=== PATIENT | female | born 1955 | race Caucasian/White ===

== ENCOUNTER 2019-09-02 07:32 | Emergency (ER) | payer OTHER ==
--- OUTSIDE RECORDS SUMMARY | 2019-09-02 07:34 | XMS REPORT ---
:1955 Author Organization eClinicalWorks Care Team Providers Name Role Phone Mayi Doe Provider Role Unavailable Allergies No Known Allergies Problems Problem Type Condition Code Onset Dates Condition Statu s Problem Allergic rhinitis, unspecified J30.9 Active seasonality, unspecified trigger Problem Muscle cramps R25.2 Active Problem Essential hypertension I10 Activ e Problem Hypertriglyceridemia E78.1 Active Problem Thrombocytosis D47.3 Active Problem Hypercalcemia E83.52 Active Problem Poison joel dermatitis L23.7 Active Problem Skin lesion L98.9 Active Problem Leukocytosis, unspecified type D72.829 Active Problem Elevated liver function tests R94.5 Active Problem Uncontrolled type 2 diabetes E11.65 Active mellitus without complication, without long-term current use of insulin Problem Bilateral low back pain without M54.5 Active sciatica, unspecified chronicity Problem Hypertension, unspecified type I10 Active Problem Insomnia, unspecified type G47.00 A ctive Problem Anxiety F41.9 Active Problem Dysarthria R47.1 Active Problem Hyperlipidemia, unspecified E78.5 Active hyperlipidemia type Problem Insomnia G47.00 Active Problem Left hip pain M25.552 Active Problem Gastroesophageal reflux disease, K21.9 Active esophagitis presence not specified Medications No Known Medications Results No Known Results Summary Purpose eClinicalWorks Submission
--- OUTSIDE RECORDS SUMMARY | 2019-09-02 07:34 | XMS REPORT ---
:1955 [facility] Care Team Providers Name Role Phone Brook Mayi Provider Role Unavailable Allergies, Adverse Reactions, Alerts Substance Reaction Event Type N.K.D.A. Info Not Available Non Drug Allergy Problems Problem Type Condition Code Onset Dates Condition Statu s Assessment Insomnia G47.00 Active Assessment Dysarthria R47.1 Active Assessment Muscle cramps R25.2 Active Assessment Thrombocytosis D47.3 Active Assessment Leukocytosis, unspecified type D72.829 Active Assessment Hypercalcemia E83.52 Active Assessment Elevated liver function tests R94.5 Active Assessment Gastroesophageal reflux disease, K21.9 Active esophagitis presence not specified Problem Insomnia G47.00 Active Assessment Hypertriglyceridemia E78.1 Active Problem Gastroesophageal reflux disease, K21.9 Active esophagitis presence not specified Assessment Hyperlipidemia, unspecified E78.5 Active hyperlipidemia type Problem Allergic rhinitis, unspecified J30.9 Active seasonality, unspecified trigger Problem Muscle cramps R25.2 Active Problem Essential hypertension I10 Activ e Problem Hypertriglyceridemia E78.1 Active Problem Thrombocytosis D47.3 Active Assessment Essential hypertension I10 Activ e Problem Hypercalcemia E83.52 Active Assessment Uncontrolled type 2 diabetes E11.65 Active mellitus without complication, without long-term current use of insulin Problem Poison joel dermatitis L23.7 Active Problem [...] Hyperlipidemia, unspecified E78.5 Active hyperlipidemia type Problem Left hip pain M25.552 Active Medications Medication Code Code Instructions Start End Status Dosage System Date Date Lisinopril [facility] 80028023434 20 MG Orally Active 1 ta blet Once a day Januvia [facility] 78903725313 50 MG Orally Active 1 table t Once a day for diabetes Mupirocin [facility] 45181345430 2 % Externally Active 1 Three times a applicatio n day to affected area Trazodone HCl [facility] 63557623030 50 MG Orally Active 1 tablet at Once a day bedtime as needed Cyclobenzaprine HCl [facility] 99759314565 10 MG Orally May Act antonia 1 tablet as Twice daily , needed for 2019 2019 muscle cramps/pain Ambien [facility] 94587931720 10 MG Orally Active 1 table t at Once a day bedtime as needed for sleep Fish Oil [facility] 61576425147 1200 MG Orally Active 1 ca psule Twice daily (otc) Metformin HCl [facility] 85890815976 1000 MG Orally Active 1 tablet Twice a day with meals Mobic [facility] 21508524337 7.5 MG Orally Active 1 tabl et Once a day Belsomra [facility] 47730930001 15 MG Orally Active 1 tabl et at Once a day bedtime as needed Hydrochlorothiazide [facility] 69960212180 25 MG Orally Act antonia 1 tablet in Once a day the morning amitriptyline ND 11907260785 25 mg po Active one t ab bedtime as needed Pravastatin Sodium [facility] 89475727365 40 MG Orally Acti ve 1 tablet in Once a day the evening Zestoretic [facility] 23698198219 20-12.5 MG Active 1 tabl et Orally Twice a day Omeprazole [facility] 03033277356 20 MG Orally Active 1 ca psule Once a day Alprazolam ND 05563965279 0.5 MG Orally Active 1 t ablet Twice a day Results No Known Results Summary Purpose eClinicalWorks Submission
--- OUTSIDE RECORDS SUMMARY | 2019-09-02 07:35 | XMS REPORT ---
:1955 Author Organization eClinicalWorks Care Team Providers Name Role Phone Canelo Patinoh Provider Role Unavailable Allergies, Adverse Reactions, Alerts Substance Reaction Event Type N.K.D.A. Info Not Available Non Drug Allergy Problems Problem Type Condition Code Onset Dates Condition Statu s Problem Allergic rhinitis, unspecified J30.9 Active seasonality, unspecified trigger Problem Muscle cramps R25.2 Active Problem Essential hypertension I10 Activ e Problem Hypertriglyceridemia E78.1 Active Problem Thrombocytosis D47.3 Active Assessment Fever, unspecified fever cause R50.9 Active Assessment Congestion of both ears H93.8X3 Acti ve Problem Hypercalcemia E83.52 Active Problem Poison joel [...] Anxiety F41.9 Active Problem Dysarthria R47.1 Active Assessment Sore throat J02.9 Active Problem Hyperlipidemia, unspecified E78.5 Active hyperlipidemia type Problem Insomnia G47.00 Active Assessment Encounter for observation for Z03.818 Active suspected exposure to other biological agents ruled out Problem Left hip pain M25.552 Active Problem Gastroesophageal reflux disease, K21.9 Active esophagitis presence not specified Medications Medication Code Code Instructions Start End Status Dosage System Date Date Pravastatin Sodium [facility] 62883814224 40 MG Orally Acti ve 1 tablet in Once a day the evening Zestoretic [facility] 60935379023 20-12.5 MG Active 1 tabl et Orally Twice a day Januvia [facility] 38023372178 50 MG Orally Active 1 table t Once a day for diabetes Metformin HCl ND 24838947101 1000 MG Orally Active 1 tablet Twice a day with meals Hydrochlorothiazide [facility] 12064781912 25 MG Orally Act antonia 1 tablet in Once a day the morning amitriptyline [facility] 81867827909 25 mg po Active one t ab bedtime as needed Fish Oil [facility] 84110948015 1200 MG Orally Active 1 ca psule Twice daily (otc) Ambien [facility] 95332721150 10 MG Orally Active 1 table t at Once a day bedtime as needed for sleep Lisinopril [facility] 19058138468 20 MG Orally Active 1 ta blet Once a day Alprazolam [facility] 46528623075 0.5 MG Orally Active 1 t ablet Twice a day Omeprazole [facility] 95084666213 20 MG Orally Active 1 ca psule Once a day Mupirocin [facility] 87106768739 2 % Externally Active 1 Three times a applicatio n day to affected area Mobic [facility] 79488836761 7.5 MG Orally Active 1 tabl et Once a day Belsomra [facility] 35615405374 15 MG Orally Active 1 tabl et at Once a day bedtime as needed Trazodone HCl [facility] 72233618553 50 MG Orally Active 1 tablet at Once a day bedtime as needed Results No Known Results Summary Purpose eClinicalWorks Submission
--- OUTSIDE RECORDS SUMMARY | 2019-09-02 07:35 | XMS REPORT ---
:1955 [facility] Care Team Providers Name Role Phone Whitley Vieira Provider Role Unavailable Allergies, Adverse Reactions, Alerts Substance Reaction Event Type N.K.D.A. Info Not Available Non Drug Allergy Problems Problem Type Condition Code Onset Dates Condition Statu s Problem Allergic rhinitis, unspecified J30.9 Active seasonality, unspecified trigger Problem Muscle cramps R25.2 Active Problem Essential hypertension I10 Activ e Problem Hypertriglyceridemia E78.1 Active Problem Thrombocytosis D47.3 Active Assessment Dysuria R30.0 Active Assessment Urinary tract infection, site not N39.0 Active specified Problem Hypercalcemia E83.52 Active Problem Poison joel [...] Start End Status Dosage System Date Date amitriptyline ND 02605583883 25 mg po Active one t ab bedtime as needed Belsomra ND 11321819185 15 MG Orally Active 1 tabl et at Once a day bedtime as needed Pravastatin Sodium ND 85365731253 40 MG Orally Acti ve 1 tablet in Once a day the evening Metformin HCl ND 45460889543 1000 MG Orally Active 1 tablet Twice a day with meals Cyclobenzaprine HCl ND 23037641121 10 MG Orally May Act antonia 1 tablet twice a day , prn 2019 2019 Mupirocin [facility] 23484675805 2 % Externally Active 1 Three times a applicatio n day to affected area Russ [facility] 03174671409 50 MG Orally Active 1 table t Once a day for diabetes Alprazolam ND 28036743223 0.5 MG Orally Active 1 t ablet Twice a day Fish Oil [facility] 42403597899 1200 MG Orally Active 1 ca psule Twice daily (otc) Trazodone HCl [facility] 90086606169 50 MG Orally Active 1 tablet at Once a day bedtime as needed Zestoretic [facility] 97338213321 20-12.5 MG Active 1 tabl et Orally Twice a day Ambien [facility] 17385562714 10 MG Orally Active 1 table t at Once a day bedtime as needed for sleep Omeprazole [facility] 18376368114 20 MG Orally Active 1 ca psule Once a day Hydrochlorothiazide [facility] 28267593850 25 MG Orally Act antonia 1 tablet in Once a day the morning Mobic [facility] 63503385133 7.5 MG Orally Active 1 tabl et Once a day Lisinopril [facility] 20784088337 20 MG Orally Active 1 ta blet Once a day Cipro [facility] 74349406825 500 MG Orally June 13June Active 1 tabl et twice a day 2019 Results Name Result Date Reference Range Unit Abnormali ty Flag Urine Culture, Routine ----Urine Culture, Final report [id number] Routine ----Result 1 Escherichia coli [id number] Summary Purpose eClinicalWorks Submission
--- OUTSIDE RECORDS SUMMARY | 2019-09-02 07:36 | XMS REPORT | Continuity of Care Document ---
:1955 Author Organization [facility] t Address [address] [place] [address] Care Team Providers Name Role Phone Unavailable Unavailable Unavailable Problems Condition Condition Condition Status Onset Resolution Last Treating Co mments Source Name Details Category Date Date Treatment Clinician Date Hyperlipid Hyperlipid Problem Active [facility]ie unspecifie Me moria d d l hyperlipid hyperlipid Ou tpati emia type emia type ent Clinics Left hip Left hip [facility] Anxiety Anxiety Problem [facility] Poison joel Poison joel Problem Active [facility] dermatitis dermatitis [facility] Uncontroll Uncontroll Problem Active [facility] ed type 2 ed type 2 [facility] - diabetes diabetes Mem[facility] a mellitus mellitus l without without Outpati complicati complicati en t on, on, Clinics without without long-term long-term current current use of use of insulin insulin Muscle Muscle Problem Active [facility] cramps [facility]amps [facility] Gastroesop Gastroesop Problem Active [facility] hageal hageal [facility] reflux reflux [facility] disease, disease, l esophagiti esophagiti Ou tpati s presence s presence en t not not Clinics specified specified Skin Skin Problem Active [facility] lesion [facility] Insomnia Insomnia Problem [facility] Hypertensi Hypertensi Problem Active [facility] on, on, [facility] unspecifie unspecifie Me moria d type d type l Outpati ent Clinics Allergic Allergic Problem [facility]initis, [facility]initis, [facility] - unspecifie unspecifie Me moria d d l seasonalit seasonalit Ou tpati y, y, ent unspecifie unspecifie Cl inics d trigger d trigger Dysarthria Dysarthria Problem Active [facility] Bilateral Bilateral Problem Active [facility] low back low back [facility] pain pain [facility] without without l sciatica, sciatica, Outp ati unspecifie unspecifie en t d d Clinics chronicity chronicity Hypertrigl Hypertrigl Problem Active [facility] yceridemia yceridemia [facility]ics Elevated Elevated Problem Active [facility] liver liver [facility] function function [facility] a tests tests l [facility] Hypercalce Hypercalce Problem Active [facility] radha radha [facility] Thrombocyt Thrombocyt Problem Active [facility] osis osis [facility] Leukocytos Leukocytos Problem Active [facility] is, is, [facility] unspecifie unspecifie Me moria d type d type l [facility] Allergies, Adverse Reactions, Alerts This patient has no known allergies or adverse reactions. Medications Ordered Filled Start Stop Current Ordering Indication Dosage Frequency Signature Comments Components Source Medication Medication Date Date Medication? Clinician (SIG) Name Name Lisinopril Lisinopril Yes Lalo [address] [facility] Januvia Januvia Yes Lalo [address] [facility] Mupirocin Mupirocin Yes Lalo [address] [facility] [facility] applicatio [facility] to [facility] affected l area [facility] Trazodone Trazodone Yes Lalo [address] HCl HCl [facility] at bedtime [facility] as needed [facility] Ambien Ambien Yes [facility] 1 tablet [facility] at bedtime [facility] as needed [facility] for sleep l [facility] Fish Oil Fish Oil Yes Lalo [address] [facility] (otc) [facility] Metformin Metformin Yes Lalo [address] [facility] HCl HCl [facility] with meals [facility] Mobic Mobic Yes Lalo [address] [facility] Belsomra Belsomra Yes Lalo [address] [facility] at bedtime [facility] as needed [facility] Hydrochloro Hydrochloro Yes Lalo [address] thiazide thiazide [facility] in the [facility] - morning [facility] amitriptyli amitriptyli Yes Lalo one tab [facility] ne ne [facility] ent Clinics Pravastatin Pravastatin Yes Lalo [address] Sodium Sodium [facility] in the [facility] - evening [facility] Zestoretic Zestoretic Yes Lalo [address] [facility] [facility] Omeprazole Omeprazole Yes Lalo [address] [facility] [facility] Alprazolam Alprazolam Yes Lalo [address] [facility] [facility] ent Clinics Procedures This patient has no known procedures. Encounters Start End Encounter Admission Attending Care Care Encounter Source Date/Time Date/Time Type Type Clinicians Facility Department ID 2019-08-30 2019-08-30 Outpatient Naeem Hartleyt [id number] [address] 08[facility]45[facility]00 08:45:00 [facility] Medicine Outpati ent Clinics 2019-08-29 2019-08-29 [facility] [id number] 08:41:00 08:41:00 [facility] Medicine Outpati ent Clinics 2019-06-18 2019-06-18 [facility] [id number] [facility] 08:57:00 08:57:00 [facility] Medicine Outpati ent Clinics 2019-06-14 2019-06-14 [facility] [id number] 15:00:00 15:00:00 [facility] Medicine Outpati ent Clinics 2019-06-12 2019-06-12 [facility] [id number] 16[facility]49:00 16:49:00 [facility] Medicine Outpati ent Clinics 2019-05-30 2019-05-30 [facility] [id number] 09:25:00 09:25:00 [facility] Medicine l Medicine Outpati ent Clinics 2019-05-25 2019-05-25 [facility] [id number] 14:31:00 14:31:00 [facility] Medicine Outpati ent Clinics 2019-05-24 2019-05-24 [facility] [id number] 16[facility]45:00 16:45:00 [facility] Medicine Outpati ent Clinics 2019-04-25 2019-04-25 [facility] [id number] [facility] 08[facility]37:00 08:37:00 [facility] Medicine Outpati ent Clinics 2018-11-17 2018-11-17 [facility] [id number] 10:13:00 10:13:00 [facility] Medicine Outpati ent Clinics 2018-11-13 2018-11-13 [facility] [id number] 10:00:00 10:00:00 [facility] Medicine Outpati ent Clinics 2018-10-28 2018-10-28 [facility] [id number] 05:08:00 05:08:00 [facility] Medicine Outpati ent Clinics 2018-10-23 2018-10-23 [facility] [id number] [facility] 08:40:00 08:40:00 [facility] Medicine Outpati ent Clinics Results This patient has no known results.
[2019-09-02] MEDS ORDERED: ONDANSETRON 4 MG/2 ML VIAL ONE (08:11)
[2019-09-02] MEDS ORDERED: NA CHLORIDE 0.9% 1,000 ML ONE (08:11)
[2019-09-02 08:48] LABS: Absolute Lymphocytes (CBC) 0.8 K/uL (0.7-4.9); Basophils % 0.2 % (0-1.3); Hematocrit 36.7 % (36.0-45.0); RBC Red Blood Cell Count 4.33 M/uL (3.86-4.86)
[2019-09-02 09:14] LABS: ALT/SGPT 44 U/L (12-78); AST/SGOT 36 U/L (15-37); Albumin 3.1 g/dL (3.4-5.0); Alkaline Phosphatase 105 U/L (45-117); BUN Blood Urea Nitrogen 10 mg/dL (7-18); Bicarbonate 25 mmol/L (21-32); Bilirubin Direct 0.1 mg/dL (0-0.2); Bilirubin Total 0.3 mg/dL (0.2-1.0); Glucose Level 202 mg/dL (74-106); Potassium 3.5 mmol/L (3.5-5.1); Protein, Total 6.9 g/dL (6.4-8.2); Sodium Level 137 mmol/L (136-145)
[2019-09-02] MEDS ORDERED: HYDROCODONE/CHLORPHEN 5 ML/OSYR ONE (10:26)
--- NOTE | 2019-09-02 10:40 | RAD REPORT ---
EXAM DESCRIPTION: Anu Single View09/02/2019 9:18 am CLINICAL HISTORY: Cough COMPARISON: none FINDINGS: Mild left pulmonary opacities. Right lung appears clear of acute infiltrate. The heart is normal size IMPRESSION: Mild left pulmonary opacities may indicate a mild pneumonia
--- NOTE | 2019-09-02 10:50 | ER ---
Nurse's Notes [facility] Name: Tonja Washington Age: 63 yrs Sex: Female : 1955 Arrival Date: 09/02/2019 Time: 07:34 Bed 5 Private MD: Mayi Doe Diagnosis: Pneumonia, unspecified organism Presentation: 09/01 07:43 Chief complaint: Patient states: cough, fever up to 100.0 F, "hard to breathe" that aa5 began 1 week ago. Pt also reports nausea/vomiting x 2 days ago and diarrhea today. 07:43 Coronavirus screen: Patient reports a cough. Patient reports shortness of breath or aa5 difficulty breathing. Patient denies travel on a cruise ship or to a country the [facility] currently lists as an affected area. Patient reports contact with known and/or suspected case of COVID-19. Patient instructed to continue to wear a mask when interacting with others. Patient moved to private room, placed in contact and droplet isolation with eye protection until further assessment. Fever up to 100.0 F. Ebola Screen: Patient negative for fever greater than or equal to 101.5 degrees Fahrenheit, and additional compatible Ebola Virus Disease symptoms. Initial Sepsis Screen: Does the patient meet any 2 criteria? RR > 20 per min. HR > 90 bpm. Yes Does the patient have a suspected source of infection? Yes:. Risk Assessment: Do you want to hurt yourself or someone else? Patient reports no desire to harm self or others. Onset of symptoms was August 2019. 07:43 Acuity: CARIDAD 3 aa5 07:43 Method Of Arrival: Ambulatory aa5 Triage Assessment: 07:45 General: Appears distressed, uncomfortable, ill, Behavior is cooperative, appropriate bp for age, anxious. Pain: Denies pain. EENT: No deficits noted. Neuro: No deficits noted. Cardiovascular: Rhythm is sinus rhythm. Respiratory: Reports shortness of breath cough that is. GI: Reports nausea, vomiting. : No signs and/or symptoms were reported regarding the genitourinary system. Derm: No deficits noted. Musculoskeletal: No signs and/or symptoms reported regarding the musculoskeletal system. Historical: - Allergies: 07:43 No Known Allergies; aa5 - Home Meds: 07:43 Metformin Oral [Active]; Januvia oral oral [Active]; lisinopril-hydrochlorothiazide aa5 oral oral [Active]; pravastatin oral oral [Active]; - PMHx: 07:43 Hypertension; Hyperlipidemia; Diabetes - NIDDM; aa5 - Immunization history:: Adult Immunizations up to date. - Social history:: Smoking status: Patient denies any tobacco usage or history of. Screenin:45 Abuse screen: Denies threats or abuse. Denies injuries from another. Nutritional bp screening: No deficits noted. Tuberculosis screening: No symptoms or risk factors identified. Fall Risk None identified. Assessment: 07:45 General: SEE TRIAGE NOTE. GI: Abdomen is non-distended. bp 09:00 Reassessment: IVF INFUSING, RESULTS PENDING. NO CHANGE IN S/S. bp 10:03 Reassessment: ALL CURRENT ORDERS COMPLETE. DISPO PENDING. bp 11:08 Reassessment: PT D/C HOME AMBULATORY, DX WITH PNEUMONIA OF UNKNOWN ORGANISM, bp PRESUMPTIVE COVID-19. Vital Signs: 07:43 BP 139 / 75; Pulse 92; Resp 22 S; Temp 98.3(O); Pulse Ox 94% on R/A; Weight 77.56 kg aa5 (R); Height 5 ft. 9 in. (175.26 cm) (R); Pain 7/10; 08:00 BP 129 / 64; Pulse 88; Resp 13; Pulse Ox 92% on R/A; bp 09:00 BP 120 / 60; Pulse 87; Resp 19; Temp 98.2; Pulse Ox 98% ; bp 10:03 BP 121 / 66; Pulse 83; Resp 16; Pulse Ox 96% ; bp 11:08 BP 101 / 56; Pulse 81; Resp 17; Temp 98.9; Pulse Ox 95% on R/A; bp 07:43 Body Mass Index 25.25 (77.56 kg, 175.26 cm) aa5 ED Course: 07:34 Patient arrived in ED. ag5 07:35 Mayi Doe MD is Private Physician. ag5 07:43 Reddy Quinonez, AYDEN is Primary Nurse. bp 07:43 Gurjit Mckinney NP is PHCP. pm1 07:43 Arm band placed on Patient placed in an exam room, on a stretcher. aa5 07:43 Patient has correct armband on for positive identification. Placed in gown. Bed in low aa5 position. Call light in reach. Side rails up X2. 07:43 surveillance system monitor on. Pulse ox on. NIBP on. aa5 07:44 Kalpesh Padilla MD is Attending Physician. pm1 07:57 Triage completed. aa5 08:15 Inserted saline lock: 20 gauge in right forearm, using aseptic technique. Blood bp collected. 09:18 Chest Single View XRAY In Process Unspecified. EDMS 11:10 No provider procedures requiring assistance completed. IV discontinued, intact, bp bleeding controlled, No redness/swelling at site. Pressure dressing applied. Administered Medications: 08:15 Drug: Zofran (Ondansetron) 4 mg Route: IVP; Site: right forearm; bp 09:06 Follow up: Response: Nausea is decreased bp 08:15 Drug: NS 0.9% 1000 ml Route: IV; Rate: 1000 ml; Site: right forearm; bp 11:10 Follow up: IV Status: Completed infusion; IV Intake: 1000ml bp 10:15 Drug: Tussionex Pennkinetic ER 5 ml Route: PO; bp 10:54 Follow up: Response: Pain is decreased bp 11:00 Drug: Rocephin 1 grams Route: IV; Rate: calculated rate; Site: right forearm; bp 11:11 Follow up: IV Status: Completed infusion; IV Intake: 50ml bp 11:00 Drug: Zithromax 500 mg Route: PO; bp 11:11 Follow up: Response: No adverse reaction bp Intake: 11:10 IV: 1000ml; Total: 1000ml. bp 11:11 IV: 50ml; Total: 1050ml. bp Outcome: 10:49 Discharge ordered by . pm1 11:10 Discharged to home ambulatory. bp 11:10 Condition: stable 11:10 Discharge instructions given to patient, Instructed on discharge instructions, follow up and referral plans. medication usage, Demonstrated understanding of instructions, follow-up care, medications, Prescriptions given X 3. 11:22 Patient left the ED. bp Addendum: 09/04/2019 19:40 Addendum: COVID-19 Result: Positive result giiven to ED physician to notify pt. i w Physician: Kalpesh Padilla MD Physician attempted to contact pt. Physician left voice mail for pt to call the ED back. 09/05/2019 11:49 Addendum: COVID-19 Result: Positive result giiven to ED physician to notify pt. Other: i w pt was admitted to hospital, notified of COVID positive result. Signatures: Dispatcher [employer] EDElly Sandoval, AYDEN RN iw Lexie Crisostomo RN RN aa5 Gurjit Mckinney, ENGRAVER WOOD ENGRAVER WOOD pm1 Reddy Quinonez RN RN bp Gaskin, Ajare ag5 Corrections: (The following items were deleted from the chart) 09/01 09:22 09:00 BP 120 / 60; Pulse 87bpm; Resp 19bpm; Pulse Ox 98%; bp bp
--- NOTE | 2019-09-02 10:50 | EDPHYS ---
Physician Documentation [facility] Name: Tonja Washington Age: 63 yrs Sex: Female : 1955 Arrival Date: 09/02/2019 Time: 07:34 Bed 5 Private MD: Mayi Doe ED Physician Kalpesh Padilla HPI: 09/01 07:48 This 63 yrs old Female presents to ER via Unassigned with complaints of pm1 Cough, Fever, Vomiting, Breathing Difficulty. 07:48 The patient or guardian reports cough, flu symptoms. Onset: The symptoms/episode pm1 began/occurred 7 day(s) ago. Severity of symptoms: in the emergency department the symptoms are actually worse. Modifying factors: The symptoms are alleviated by nothing, the symptoms are aggravated by nothing. Associated signs and symptoms: Pertinent positives: fever, nausea, vomiting, and diarrhea. The patient has not recently seen a physician. Positive exposure to son in law who tested positive for covid-19 two weeks ago. Historical: - Allergies: 07:43 No Known Allergies; aa5 - Home Meds: 07:43 Metformin Oral [Active]; Januvia oral oral [Active]; lisinopril-hydrochlorothiazide aa5 oral oral [Active]; pravastatin oral oral [Active]; - PMHx: 07:43 Hypertension; Hyperlipidemia; Diabetes - NIDDM; aa5 - Immunization history:: Adult Immunizations up to date. - Social history:: Smoking status: Patient denies any tobacco usage or history of. ROS: 07:43 Eyes: Negative for injury, pain, redness, and discharge, Cardiovascular: Negative for pm1 chest pain, palpitations, and edema. 07:43 Back: Negative for injury and pain, MS/Extremity: Negative for injury and deformity, Skin: Negative for injury, rash, and discoloration. 07:43 Neuro: Negative for headache, weakness, numbness, tingling, and seizure. 07:43 Constitutional: Positive for fever, Negative for poor PO intake. 07:43 Respiratory: Positive for cough, shortness of breath, wheezing, Negative for sputum production. 07:43 Abdomen/GI: Positive for vomiting, diarrhea, Negative for abdominal pain. 07:43 All other systems are negative. Exam: 07:43 Constitutional: This is a well developed, well nourished patient who is awake, alert, pm1 and in no acute distress. Head/Face: Normocephalic, atraumatic. 07:43 Back: No spinal tenderness. No costovertebral tenderness. Full range of motion. Skin: Warm, dry with normal turgor. Normal color with no rashes, no lesions, and no evidence of cellulitis. MS/ Extremity: Pulses equal, no cyanosis. Neurovascular intact. Full, normal range of motion. 07:43 Cardiovascular: Exam negative for acute changes, Rate: normal, Rhythm: regular, Pulses: no pulse deficits are appreciated. 07:43 Respiratory: Exam negative for acute changes, respiratory distress, shortness of breath, wheezing. 07:43 Abdomen/GI: Exam negative for acute changes, Inspection: abdomen appears normal, Palpation: abdomen is soft and non-tender, in all quadrants. 07:43 Neuro: Exam negative for acute changes, Orientation: is normal, Motor: is normal, moves all fours. Vital Signs: 07:43 BP 139 / 75; Pulse 92; Resp 22 S; Temp 98.3(O); Pulse Ox 94% on R/A; Weight 77.56 kg aa5 (R); Height 5 ft. 9 in. (175.26 cm) (R); Pain 7/10; 08:00 BP 129 / 64; Pulse 88; Resp 13; Pulse Ox 92% on R/A; bp 09:00 BP 120 / 60; Pulse 87; Resp 19; Temp 98.2; Pulse Ox 98% ; bp 10:03 BP 121 / 66; Pulse 83; Resp 16; Pulse Ox 96% ; bp 11:08 BP 101 / 56; Pulse 81; Resp 17; Temp 98.9; Pulse Ox 95% on R/A; bp 07:43 Body Mass Index 25.25 (77.56 kg, 175.26 cm) aa5 MDM: 07:44 Patient medically screened. pm1 10:48 Data reviewed: vital signs. Data interpreted: Pulse oximetry: on room air is 96 %. pm1 Interpretation: normal. Counseling: I had a detailed discussion with the patient and/or guardian regarding: the historical points, exam findings, and any diagnostic results supporting the discharge/admit diagnosis, lab results, radiology results, the need for outpatient follow up, to return to the emergency department if symptoms worsen or persist or if there are any questions or concerns that arise at home. 09/01 07:53 Order name: COVID-19 pm1 09/01 07:53 Order name: Flu; Complete Time: 10:44 pm1 09/01 07:53 Order name: Strep; Complete Time: 10:45 pm09/01 07:53 Order name: Basic Metabolic Panel; Complete Time: 09:18 pm09/01 07:53 Order name: CBC with Diff; Complete Time: 08:57 pm1 09/01 07:53 Order name: Hepatic Function; Complete Time: 09:18 pm09/01 07:53 Order name: Document PUI#; Complete Time: 08:21 pm09/01 07:53 Order name: Chest Single View XRAY; Complete Time: 10:44 pm09/01 10:46 Order name: Throat Culture EDMS 09/01 07:53 Order name: Droplet/Contact Precautions; Complete Time: 07:56 pm09/01 07:53 Order name: Labs collected and sent; Complete Time: 08:21 pm09/01 07:53 Order name: Notify Health Dept [phone]/ ; Complete Time: 08:21 pm09/01 07:53 Order name: O2 Per Protocol; Complete Time: 07:56 pm09/01 07:53 Order name: IV Saline Lock; Complete Time: 08:21 pm1 Administered Medications: 08:15 Drug: Zofran (Ondansetron) 4 mg Route: IVP; Site: right forearm; bp 09:06 Follow up: Response: Nausea is decreased bp 08:15 Drug: NS 0.9% 1000 ml Route: IV; Rate: 1000 ml; Site: right forearm; bp 11:10 Follow up: IV Status: Completed infusion; IV Intake: 1000ml bp 10:15 Drug: Tussionex Pennkinetic ER 5 ml Route: PO; bp 10:54 Follow up: Response: Pain is decreased bp 11:00 Drug: Rocephin 1 grams Route: IV; Rate: calculated rate; Site: right forearm; bp 11:11 Follow up: IV Status: Completed infusion; IV Intake: 50ml bp 11:00 Drug: Zithromax 500 mg Route: PO; bp 11:11 Follow up: Response: No adverse reaction bp Disposition: 09/02 05:36 Co-signature as Attending Physician, Kalpesh Padilla MD I agree with the assessment and philippe plan of care. Disposition: 09/02/19 10:49 Discharged to Home. Impression: Pneumonia, unspecified organism. - Condition is Stable. - Discharge Instructions: Community-Acquired Pneumonia, Adult, COVID-19. - Prescriptions for Zithromax Z- Ray 250 mg Oral Tablet - take 1 tablet by ORAL route as directed for 5 days Day 1 - take two (2) tablets one time. Day 2, 3, 4 , 5 take one (1) tablet once daily.; 6 tablet. Guaifenesin AC 10- 100 mg/5 mL Oral Liquid - take 10 milliliter by ORAL route every 4 hours As needed; 240 milliliter. Albuterol Sulfate 90 mcg/actuation - inhale 1-2 puff by INHALATION route every 4-6 hours; 1 Inhaler. Zofran ODT 4 mg Oral tablet,disintegrating - place 1 tablet by TRANSLINGUAL route every 8 hours As needed; 12 tablet. - Medication Reconciliation Form, Thank You Letter, Antibiotic Education, Prescription Opioid Use form. - Follow up: Emergency Department; When: As needed; Reason: Worsening of condition. Follow up: Private Physician; When: 2 - 3 days; Reason: Recheck today's complaints, Continuance of care, Re-evaluation by your physician. - Problem is new. - Symptoms have improved. Signatures: Dispatcher [employer] [facility] Kalpesh Padilla MD MD cha Calderon, Audri, RN RN aa5 Gurjit Mckinney, [employer]IPPING CUTTER pm1 Reddy Quinonez RN RN bp Corrections: (The following items were deleted from the chart) 09/01 11:22 10:49 09/02/2019 10:49 Discharged to Home. Impression: Pneumonia, unspecified organism. bp Condition is Stable. Forms are Medication Reconciliation Form, Thank You Letter, Antibiotic Education, Prescription Opioid Use. Follow up: Emergency Department; When: As needed; Reason: Worsening of condition. Follow up: Private Physician; When: 2 - 3 days; Reason: Recheck today's complaints, Continuance of care, Re-evaluation by your physician. Problem is new. Symptoms have improved. pm1
[2019-09-02] MEDS ORDERED: NA CHLORIDE 0.9% 100 ML IV ONE (11:10)
[2019-09-02] MEDS ORDERED: CEFTRIAXONE/SWI 1gm 1 GM/10 ML SYR ONE (11:10)
[2019-09-02] MEDS ORDERED: AZITHROMYCIN 250 MG TAB ONE (11:10)
[2019-09-02 11:35] VITALS: BP 101/56; TEMP 98.9; O2SAT 95
== END 2019-09-02 11:22 | disposition home or self-care (01) ==
LOC: ER 07:32
DX: U07.1 COVID-19 (principal); J18.9 Pneumonia, unspecified organism; I10 Essential (primary) hypertension; E11.9 Type 2 diabetes mellitus without complications; E78.5 Hyperlipidemia, unspecified
CPT/HCPCS: 96361; 87070; 85025; 80048; 36415; 80076; 87081; 87804 ×2; 71045; 96375; 96374; 99284; U0001; J0696; J7030; J2405

== ENCOUNTER 2019-09-05 06:23 | Inpatient (IN) | payer OTHER ==
--- OUTSIDE RECORDS SUMMARY | 2019-09-05 06:25 | XMS REPORT ---
:1955 [facility] Team Providers Name Role Phone Brook [...] End Status Dosage System Date Date Lisinopril [facility] 06486690965 20 MG Orally Active 1 ta blet Once a day Januvia [facility] 76268343270 50 MG Orally Active 1 table t Once a day for diabetes Mupirocin [facility] 18105528500 2 % Externally Active 1 Three times a applicatio n day to affected area Trazodone HCl [facility] 96638126110 50 MG Orally Active 1 tablet at Once a day bedtime as needed Cyclobenzaprine HCl [facility] 95650756877 10 MG Orally May Act antonia 1 tablet as Twice daily , needed for 2019 2019 muscle cramps/pain Ambien [facility] 90415757695 10 MG Orally Active 1 table t at Once a day bedtime as needed for sleep Fish Oil [facility] 25132129630 1200 MG Orally Active 1 ca psule Twice daily (otc) Metformin HCl [facility] 23980149812 1000 MG Orally Active 1 tablet Twice a day with meals Mobic [facility] 81140445558 7.5 MG Orally Active 1 tabl et Once a day Belsomra [facility] 74078790551 15 MG Orally Active 1 tabl et at Once a day bedtime as needed Hydrochlorothiazide [facility] 95691578405 25 MG Orally Act antonia 1 tablet in Once a day the morning amitriptyline ND 23580073664 25 mg po Active one t ab bedtime as needed Pravastatin Sodium [facility] 24516142722 40 MG Orally Acti ve 1 tablet in Once a day the evening Zestoretic [facility] 47919099065 20-12.5 MG Active 1 tabl et Orally Twice a day Omeprazole [facility] 44803253175 20 MG Orally Active 1 ca psule Once a day Alprazolam ND 40334827448 0.5 MG Orally Active 1 t ablet Twice a day Results No Known Results Summary Purpose eClinicalWorks Submission
--- OUTSIDE RECORDS SUMMARY | 2019-09-05 06:26 | XMS REPORT ---
:1955 [facility] Care Team Providers Name Role Phone Whitley [...] Status Dosage System Date Date amitriptyline ND 25695128695 25 mg po Active one t ab bedtime as needed Belsomra ND 43609779569 15 MG Orally Active 1 tabl et at Once a day bedtime as needed Pravastatin Sodium ND 77709745143 40 MG Orally Acti ve 1 tablet in Once a day the evening Metformin HCl ND 72892757152 1000 MG Orally Active 1 tablet Twice a day with meals Cyclobenzaprine HCl ND 76535771528 10 MG Orally May Act antonia 1 tablet twice a day , prn [address] [facility] 11515949212 2 % Externally Active 1 Three times a applicatio n day to affected area Russ [facility] 37004531851 50 MG Orally Active 1 table t Once a day for diabetes Alprazolam ND 72725231613 0.5 MG Orally Active 1 t ablet Twice a day Fish Oil [facility] 62759731177 1200 MG Orally Active 1 ca psule Twice daily (otc) Trazodone HCl [facility] 92776574001 50 MG Orally Active 1 tablet at Once a day bedtime as needed Zestoretic [facility] 55512617722 20-12.5 MG Active 1 tabl et Orally Twice a day Ambien [facility] 85136362115 10 MG Orally Active 1 table t at Once a day bedtime as needed for sleep Omeprazole [facility] 15679790747 20 MG Orally Active 1 ca psule Once a day Hydrochlorothiazide [facility] 78091307165 25 MG Orally Act antonia 1 tablet in Once a day the morning Mobic [facility] 02164466681 7.5 MG Orally Active 1 tabl et Once a day Lisinopril [facility] 98094738886 20 MG Orally Active 1 ta blet Once a day Cipro [facility] 09445067627 500 MG Orally June 13June Active 1 tabl et twice a day 2019 Results Name Result Date Reference Range Unit Abnormali ty Flag Urine Culture, Routine ----Urine Culture, Final report [id number] Routine ----Result 1 Escherichia coli [id number] Summary Purpose eClinicalWorks Submission
--- OUTSIDE RECORDS SUMMARY | 2019-09-05 06:26 | XMS REPORT ---
[...] Status Dosage System Date Date Pravastatin Sodium [facility] 79256901060 40 MG Orally Acti ve 1 tablet in Once a day the evening Zestoretic [facility] 00580914237 20-12.5 MG Active 1 tabl et Orally Twice a day Januvia [facility] 39031337477 50 MG Orally Active 1 table t Once a day for diabetes Metformin HCl ND 55524689761 1000 MG Orally Active 1 tablet Twice a day with meals Hydrochlorothiazide [facility] 29715254428 25 MG Orally Act antonia 1 tablet in Once a day the morning amitriptyline [facility] 95728874640 25 mg po Active one t ab bedtime as needed Fish Oil [facility] 28076563757 1200 MG Orally Active 1 ca psule Twice daily (otc) Ambien [facility] 35343868218 10 MG Orally Active 1 table t at Once a day bedtime as needed for sleep Lisinopril [facility] 09610432112 20 MG Orally Active 1 ta blet Once a day Alprazolam [facility] 59007898975 0.5 MG Orally Active 1 t ablet Twice a day Omeprazole [facility] 06842944704 20 MG Orally Active 1 ca psule Once a day Mupirocin [facility] 98063108455 2 % Externally Active 1 Three times a applicatio n day to affected area Mobic [facility] 83059807545 7.5 MG Orally Active 1 tabl et Once a day Belsomra [facility] 84510065829 15 MG Orally Active 1 tabl et at Once a day bedtime as needed Trazodone HCl [facility] 95593030227 50 MG Orally Active 1 tablet at Once a day bedtime as needed Results No Known Results Summary Purpose eClinicalWorks Submission
--- OUTSIDE RECORDS SUMMARY | 2019-09-05 06:27 | XMS REPORT | Continuity of Care Document ---
:[address] [facility] [place], [place] t Address [address] [place] [address] Care Team Providers Name Role Phone Unavailable [...] [facility] Bilateral Bilateral Problem Active [facility] low back low back [facility] - pain pain [facility] without without l sciatica, sciatica, Outp ati unspecifie unspecifie en t d d Clinics chronicity chronicity Hypertrigl Hypertrigl Problem Active C [facility] yceridemia yceridemia Mimi k[facility] - [facility] Elevated Elevated Problem Active [facility] liver liver [facility] function function [facility] a tests tests l [facility] Hypercalce Hypercalce Problem Active [facility] radha radha [facility] Thrombocyt Thrombocyt Problem Active [facility] osis osis [facility] Leukocytos Leukocytos Problem Active [facility] is, is, [facility] - unspecifie unspecifie Me moria d type d type l [facility] Allergies, Adverse Reactions, Alerts This patient has no known allergies or adverse reactions. Medications Ordered Filled Start Stop Current Ordering Indication Dosage Frequency Signature Comments Components Source Medication Medication Date Date Medication? Clinician (SIG) Name Name Lisinopril Lisinopril Yes Lalo [address] [facility] Januvia Januvia Yes Lalo [address] [facility] Mupirocin Mupirocin Yes Lalo [address] [facility] applicatio [facility] - n to [facility]oria affected l area [facility] Trazodone Trazodone Yes Lalo [address] [facility] HCl HCl [place] at bedtime [facility] - as needed [facility] Ambien Ambien Yes Lalo 1 tablet [facility] at bedtime [facility] as needed [facility] for sleep l [facility] Fish Oil Fish Oil Yes Lalo [address] [facility] (otc) [facility] Metformin Metformin Yes Lalo [address] [facility] HCl HCl [place] with meals [facility] Mobic Mobic Yes Lalo [address] [facility] Belsomra Belsomra Yes Lalo [address] [facility] at bedtime [facility] as needed [facility] Hydrochloro Hydrochloro Yes Allo [address] [facility] thiazide thiazide [place] in the [facility] - morning [facility] amitriptyli amitriptyli Yes Lalo one tab [facility] ne ne [facility] Pravastatin Pravastatin Yes Lalo [address] [facility] [address] Sodium Sodium [place] in the [facility] - evening [facility] Zestoretic Zestoretic Yes Lalo [address] [facility] [address] [facility] Omeprazole Omeprazole Yes Lalo [address] [facility] Alprazolam Alprazolam Yes Lalo [address] [facility] Procedures This patient has no known procedures. Encounters Start End Encounter Admission Attending Care Care Encounter Source Date/Time Date/Time Type Type Clinicians Facility Department ID 2019-09-04 2019-09-04 Outpatient Naeem Hartleyt [id number] [facility] 10:38:00 10:38:00 [facility] Medicine Outpati ent Clinics 2019-08-30 2019-08-30 [place] [place] [id number] [facility] 08:45:00 08:45:00 [facility] Medicine Outpati ent Clinics 2019-08-29 2019-08-29 Outpatient [place] [place] [id number] [facility] 08:41:00 08:41:00 [facility] Medicine Outpati ent Clinics 2019-06-18 2019-06-18 [facility] [id number] [facility] 08:57:00 08:57:00 [facility] Medicine Outpati ent Clinics 2019-06-14 2019-06-14 [place] [place] [id number] [facility] 15:00:00 15:00:00 [facility] Medicine Outpati ent Clinics 2019-06-12 2019-06-12 Outpatient [facility] [place] [id number] [facility] 16:49:00 16:49:00 [facility] Medicine Outpati ent Clinics 2019-05-30 2019-05-30 [facility] [id number] [address] 09:25:00 09:25:00 t [facility] Medicine Outpati ent Clinics 2019-05-25 2019-05-25 [facility] [id number] [facility] 14:31:00 14:31:00 [facility] Medicine Outpati ent Clinics 2019-05-24 2019-05-24 [facility] [id number] [facility] 16:45:00 16:45:00 [facility] Medicine Outpati ent Clinics 2019-04-25 2019-04-25 [facility] [id number] [facility] 08:37:00 08:37:00 [facility] Medicine Outpati ent Clinics 2018-11-17 2018-11-17 [facility] [id number] [facility] 10[facility]13:00 10:13:00 [facility] Medicine Outpati ent Clinics 2018-11-13 2018-11-13 [facility] [id number] [address] 10:00:00 10:00:00 [facility] Medicine Outpati ent Clinics 2018-10-28 2018-10-28 [facility] [id number] [address] 05:08:00 05:08:00 [facility] Medicine Outpati ent Clinics 2018-10-23 2018-10-23 [facility] [id number] [facility] 08:40:00 08:40:00 [facility] Medicine Outpati ent Clinics Results This patient has no known results.
[2019-09-05] MEDS ORDERED: METHYLPREDNISOLONE 125 MG INJ ONE (07:35)
[2019-09-05] MEDS ORDERED: NA CHLORIDE 0.9% 1,000 ML ONE (07:35)
[2019-09-05] MEDS ORDERED: ONDANSETRON 4 MG/2 ML VIAL ONE (07:36)
[2019-09-05 08:24] LABS: Absolute Lymphocytes (CBC) 0.6 K/uL (0.7-4.9); Basophils % 0.1 % (0-1.3); Hematocrit 30.6 % (36.0-45.0); MPV 8.6 fL (7.6-11.3); RBC Red Blood Cell Count 3.61 M/uL (3.86-4.86)
--- NOTE | 2019-09-05 08:26 | RAD REPORT ---
EXAM DESCRIPTION: RAD - Chest Single View - 09/05/2019 7:35 am CLINICAL HISTORY: SOB Chest pain. COMPARISON: Chest Single View dated 09/02/2019 FINDINGS: Portable technique limits examination quality. Moderate bilateral pulmonary opacities are present, mildly to moderately progressive since the compar ative study. The heart is upper limit normal size No displaced fractures. IMPRESSION: Moderate progression in bilateral pulmonary opacities since comparative study.
[2019-09-05 08:41] LABS: Protime INR 1.14
[2019-09-05 08:43] LABS: ALT/SGPT 109 U/L (12-78); AST/SGOT 78 U/L (15-37); Albumin 2.6 g/dL (3.4-5.0); Alkaline Phosphatase 172 U/L (45-117); BUN Blood Urea Nitrogen 10 mg/dL (7-18); Bicarbonate 28 mmol/L (21-32); Bilirubin Direct 0.2 mg/dL (0-0.2); Bilirubin Total 0.5 mg/dL (0.2-1.0); Glucose Level 207 mg/dL (74-106); NT PRO-BNP 852 pg/mL (<125); Potassium 3.3 mmol/L (3.5-5.1); Protein, Total 6.9 g/dL (6.4-8.2); Sodium Level 136 mmol/L (136-145); Troponin (Emerg Dept Use Only) < 0.02 ng/mL (0.0-0.045)
--- NOTE | 2019-09-05 09:12 | ER ---
Nurse's Notes [facility] Name: Tonja Washington Age: 63 yrs Sex: Female : 1955 Arrival Date: 09/05/2019 Time: 06:25 Bed 13 Private MD: Diagnosis: Hypoxemia;Pneumonia in diseases classified elsewhere;Coronavirus infection, unspecified Presentation: 09/04 06:51 Chief complaint: Patient states: she was here on Tuesday and tested for Covid but has bb not received any results yet pt states son is positive and she feels she is worsening she has fever, cough, fatigue she last took tylenol at 0300 this morning. Coronavirus screen: Patient reports a cough. Patient reports shortness of breath or difficulty breathing. Patient reports a measured and/or subjective temperature greater than 100.4F. Patient reports contact with known and/or suspected case of COVID-19. Prior COVID test collected on: September 02, 2019. Ebola Screen: No symptoms or risks identified at this time. Initial Sepsis Screen: Does the patient meet any 2 criteria? No. Patient's initial sepsis screen is negative. Does the patient have a suspected source of infection? No. Patient's initial sepsis screen is negative. Risk Assessment: Do you want to hurt yourself or someone else? Patient reports no desire to harm self or others. Onset of symptoms was August 28, 2019. 06:51 Method Of Arrival: Ambulatory bb 06:51 Acuity: CARIDAD 2 bb Historical: - Allergies: 06:55 No Known Allergies; bb - Home Meds: 06:55 Januvia Oral [Active]; lisinopril-hydrochlorothiazide Oral [Active]; Metformin Oral bb [Active]; pravastatin Oral [Active]; - PMHx: 06:55 Diabetes - NIDDM; Hyperlipidemia; Hypertension; bb - Immunization history:: Adult Immunizations up to date. - Social history:: Smoking status: Patient denies any tobacco usage or history of. Screenin:00 Abuse screen: Denies threats or abuse. Denies injuries from another. Nutritional jr10 screening: No deficits noted. Tuberculosis screening: No symptoms or risk factors identified. Fall Risk No fall in past 12 months (0 pts). No secondary diagnosis (0 pts). IV access (20 points). Ambulatory Aid- None/Bed Rest/Nurse Assist (0 pts). Gait- Normal/Bed Rest/Wheelchair (0 pts) Mental Status- Oriented to own ability (0 pts). Assessment: 07:00 General: Appears uncomfortable, Behavior is appropriate for age. Pain: Denies pain. jr10 Neuro: No deficits noted. Cardiovascular: Reports shortness of breath, Denies chest pain, Rhythm is regular. Respiratory: Reports shortness of breath cough that is air hunger Airway is patent Respiratory effort is even, unlabored, Respiratory pattern is symmetrical, tachypnea Breath sounds are clear bilaterally. the patient has moderate shortness of breath. GI: Abdomen is non-distended, Bowel sounds present X 4 quads. Abd is soft and non tender X 4 quads. Reports nausea. : No deficits noted. Derm: No deficits noted. Musculoskeletal: Reports weakness in generalized weakness reported. Vital Signs: 06:51 BP 135 / 88; Pulse 96; Resp 18 S; Temp 99.4(O); Pulse Ox 87% on R/A; Weight 77.11 kg bb (R); Height 5 ft. 9 in. (175.26 cm) (R); Pain 7/10; 06:51 Pulse Ox 91% on 2 lpm NC; bb 08:00 BP 123 / 60; Pulse 88; Resp 24; Pulse Ox 94% on 3 lpm NC; Pain 0/10; jr10 09:00 BP 103 / 80; Pulse 86; Resp 24; Pulse Ox 96% on 3 lpm NC; jr10 10:38 BP 109 / 67; Pulse 90; Resp 24; Temp 99.0(O); Pulse Ox 90% on 3 lpm NC; jr10 11:39 BP 124 / 62; Pulse 81; Resp 24; Pulse Ox 93% on 3 lpm NC; jr10 06:51 Body Mass Index 25.10 (77.11 kg, 175.26 cm) bb ED Course: 06:25 Patient arrived in ED. bp1 06:38 Kalpesh Lange PA is PHCP. cp 06:38 Schuyler Dunn MD is Attending Physician. cp 06:54 Triage completed. bb 06:55 Arm band placed on Patient placed in an exam room, on a stretcher, on oxygen, on pulse bb oximetry. 07:00 Placed in gown. Bed in low position. Call light in reach. Side rails up X2. Cardiac jr10 monitor on. Pulse ox on. NIBP on. 07:10 Cole Perez MD is Attending Physician. cp 07:12 Geraldine Gardner, AYDEN is Primary Nurse. jr10 07:35 XRAY Chest (1 view) In Process Unspecified. EDMS 07:40 Inserted saline lock: 20 gauge in left forearm, using aseptic technique. IV is patent, jr10 is intact, with good blood return, Flushed. 09:10 Mega Krishnan MD is Hospitalizing Provider. cp 10:12 No provider procedures requiring assistance completed. jr10 11:00 CT Chest For PE Angio In Process Unspecified. EDMS 11:46 Patient admitted, IV remains in place. intact, No redness/swelling at site. jr10 Administered Medications: 07:43 Drug: Zofran (Ondansetron) 4 mg Route: IVP; Site: left forearm; jr10 09:19 Follow up: Response: No adverse reaction jr10 07:45 Drug: NS 0.9% 1000 ml Route: IV; Rate: 1 bolus; Site: left forearm; jr10 09:19 Follow up: Response: No adverse reaction; IV Status: Completed infusion jr10 07:45 Drug: SOLU-Medrol 80 mg Route: IVP; Site: left forearm; jr10 09:19 Follow up: Response: No adverse reaction jr10 09:44 Drug: Rocephin 1 grams Route: IV; Rate: calculated rate; Site: left forearm; jr10 10:13 Follow up: Response: No adverse reaction; IV Status: Completed infusion jr10 09:44 Drug: Potassium Effervescent Tablet 50 mEq Route: PO; jr10 10:13 Follow up: Response: No adverse reaction jr10 Outcome: 09:11 Decision to Hospitalize by Provider. cp 11:45 Admitted to ICU accompanied by nurse, via stretcher, room 3, on monitor, Report called jrAnabel to AYDEN Souza 11:45 Condition: improved 11:45 Instructed on the need for admit, Demonstrated understanding of instructions. 12:14 Patient left the ED. jr10 Signatures: Dispatcher [employer] EDMS Bethanie Eubanks RN RN Kalpesh Delvalle PA PA cp Nettie Samano Jessica, RN AYDEN jr10
--- NOTE | 2019-09-05 09:12 | EDPHYS ---
Physician Documentation [facility] Name: Tonja Washington Age: 63 yrs Sex: Female : 1955 Arrival Date: 09/05/2019 Time: 06:25 Bed 13 Private MD: ED Physician Cole Perez HPI: 09/04 07:10 This 63 yrs old Female presents to ER via Ambulatory with complaints of Fever.cp 07:10 The patient reports fever. cp 07:10 Onset: The symptoms/episode began/occurred 3 day(s) ago. Associated signs and symptoms: cp Pertinent positives: cough, shortness of breath. Severity of symptoms: in the emergency department the symptoms are unchanged despite home interventions. Historical: - Allergies: 06:55 No Known Allergies; bb - Home Meds: 06:55 Januvia Oral [Active]; lisinopril-hydrochlorothiazide Oral [Active]; Metformin Oral bb [Active]; pravastatin Oral [Active]; - PMHx: 06:55 Diabetes - NIDDM; Hyperlipidemia; Hypertension; bb - Immunization history:: Adult Immunizations up to date. - Social history:: Smoking status: Patient denies any tobacco usage or history of. ROS: 07:15 Constitutional: Positive for body aches, Negative for fever, poor PO intake. cp 07:15 Eyes: Negative for injury, pain, redness, and discharge. cp 07:15 ENT: Negative for ear pain, sore throat, difficulty swallowing, difficulty handling secretions. 07:15 Cardiovascular: Positive for chest pain, with cough, Negative for edema. 07:15 Respiratory: Positive for cough, "sounds productive", shortness of breath, at rest. 07:15 Abdomen/GI: Positive for nausea and vomiting, anorexia, Negative for abdominal pain, diarrhea, constipation. 07:15 : Negative for urinary symptoms. 07:15 Skin: Negative for rash. 07:15 Neuro: Negative for altered mental status, weakness. 07:15 All other systems are negative. Exam: 07:20 Constitutional: The patient appears in no acute distress, alert, awake, cp non-diaphoretic, well developed, well nourished, in obvious distress, mildly distressed, obviously ill. 07:20 Head/Face: Normocephalic, atraumatic. cp 07:20 Eyes: Periorbital structures: appear normal, Conjunctiva: normal, no exudate, no injection, Sclera: no appreciated abnormality, Lids and lashes: appear normal, bilaterally. 07:20 ENT: External ear(s): are unremarkable, Nose: is normal, Mouth: Lips: moist, Oral mucosa: moist, Posterior pharynx: Airway: no evidence of obstruction, patent. 07:20 Neck: ROM/movement: is normal, is supple, no meningismus, no nuchal rigidity. 07:20 Chest/axilla: Inspection: normal, Palpation: is normal, no crepitus, no tenderness. 07:20 Cardiovascular: Rate: normal, Rhythm: regular, Edema: is not appreciated, JVD: is not appreciated. 07:20 Respiratory: mild respiratory distress is noted, Respirations: labored breathing, that is mild, intercostal retractions, are absent, shallow respirations, that is mild, Breath sounds: bronchial sounds, that are mild, are heard diffusely, stridor, is not appreciated, + upper airway congestion. wheezing: is not appreciated. 07:20 Abdomen/GI: Inspection: abdomen appears normal, Bowel sounds: active, all quadrants, Palpation: abdomen is soft and non-tender, in all quadrants. 07:20 Back: pain, is absent, ROM is normal. 07:20 Skin: no rash present. 07:20 Neuro: Orientation: to person, place \\T\\ time. Mentation: is normal, Cerebellar function: is grossly normal, Motor: moves all fours, strength is normal. 08:10 ECG was reviewed by the Attending Physician. cp Vital Signs: 06:51 BP 135 / 88; Pulse 96; Resp 18 S; Temp 99.4(O); Pulse Ox 87% on R/A; Weight 77.11 kg bb (R); Height 5 ft. 9 in. (175.26 cm) (R); Pain 7/10; 06:51 Pulse Ox 91% on 2 lpm NC; bb 08:00 BP 123 / 60; Pulse 88; Resp 24; Pulse Ox 94% on 3 lpm NC; Pain 0/10; jr10 09:00 BP 103 / 80; Pulse 86; Resp 24; Pulse Ox 96% on 3 lpm NC; jr10 10:38 BP 109 / 67; Pulse 90; Resp 24; Temp 99.0(O); Pulse Ox 90% on 3 lpm NC; jr10 11:39 BP 124 / 62; Pulse 81; Resp 24; Pulse Ox 93% on 3 lpm NC; jr10 06:51 Body Mass Index 25.10 (77.11 kg, 175.26 cm) bb MDM: 06:49 Patient medically screened. 07:30 Differential diagnosis: viral Infection, bacterial infection, URI, bronchitis, cp pneumonia gastroenteritis, meningitis. 09:10 Data reviewed: vital signs, nurses notes, lab test result(s), EKG, radiologic studies, cp plain films, I have discussed the patient's presentation/case with the attending Emergency Department Physician; and as a result, I will admit patient. 09:10 Test interpretation: by ED physician or midlevel provider: ECG. Counseling: I had a cp detailed discussion with the patient and/or guardian regarding: the historical points, exam findings, and any diagnostic results supporting the discharge/admit diagnosis, lab results, radiology results, the need for further work-up and treatment in the hospital. 09:16 Physician consultation: Eliu BUNCH was called at 09:13, was contacted at 09:13, regarding admission, to the telemetry unit. patient's condition. 09/04 07:09 Order name: Basic Metabolic Panel; Complete Time: 08:59 09/04 09:00 Interpretation: Normal except: K 3.3; GLUC 207; CRE 0.49. 09/04 07:09 Order name: CBC with Diff; Complete Time: 11:17 09/04 08:39 Interpretation: Normal except: WBC 10.7; RBC 3.61; HGB 10.4; HCT 30.6; PLT 476; SANNA% cp 90.6; LYM% 6.0; NEUT A 9.7; LYMA 0.6. 09/04 07:09 Order name: LFT's; Complete Time: 08:59 cp 09/04 09:00 Interpretation: Normal except: AST 78; ALT 109; ALK 172; ALB 2.6; GLOB 4.3; A/G 0.6. 09/04 07:09 Order name: Magnesium; Complete Time: 08:59 cp 09/04 07:09 Order name: NT PRO-BNP; Complete Time: 08:59 09/04 07:09 Order name: PT-INR; Complete Time: 11:17 cp 09/04 07:09 Order name: Troponin (emerg Dept Use Only); Complete Time: 08:59 cp 09/04 07:09 Order name: XRAY Chest (1 view); Complete Time: 08:39 cp 09/04 07:09 Order name: Blood Culture Adult (2) cp 09/04 07:09 Order name: CRP; Complete Time: 08:59 cp 09/04 07:09 Order name: Lactate; Complete Time: 10:27 cp 09/04 07:09 Order name: Procalcitonin; Complete Time: 08:59 cp 09/04 07:09 Order name: D-Dimer; Complete Time: 11:17 cp 09/04 10:27 Interpretation: Abnormal: D-DIMER 2.62. cp 09/04 11:04 Order name: CBC Smear Scan; Complete Time: 11:17 EDMS 09/04 07:09 Order name: EKG; Complete Time: 07:10 cp 09/04 07:09 Order name: Cardiac monitoring; Complete Time: 08:09 09/04 07:09 Order name: EKG - Nurse/Tech; Complete Time: 08:10 09/04 07:09 Order name: IV Saline Lock; Complete Time: 08:10 09/04 07:09 Order name: Labs collected and sent; Complete Time: 08:10 09/04 07:09 Order name: O2 Per Protocol; Complete Time: 08:10 09/04 07:09 Order name: O2 Sat Monitoring; Complete Time: 08:10 09/04 08:16 Order name: Labs - recollect needed: recollect lactate (it timed out); Complete Time: bd 09:00 09/04 10:29 Order name: CT Chest For PE Angio; Complete Time: 11:17 09/04 11:20 Order name: CONS Physician Consult EDMS EC:10 Rate is 88 beats/min. Rhythm is regular. QRS interval is normal. QT interval is normal. cp Interpreted by me. Reviewed by me. Administered Medications: 07:43 Drug: Zofran (Ondansetron) 4 mg Route: IVP; Site: left forearm; jr10 09:19 Follow up: Response: No adverse reaction jr10 07:45 Drug: NS 0.9% 1000 ml Route: IV; Rate: 1 bolus; Site: left forearm; jr10 09:19 Follow up: Response: No adverse reaction; IV Status: Completed infusion jr10 07:45 Drug: SOLU-Medrol 80 mg Route: IVP; Site: left forearm; jr10 09:19 Follow up: Response: No adverse reaction jr10 09:44 Drug: Rocephin 1 grams Route: IV; Rate: calculated rate; Site: left forearm; jr10 10:13 Follow up: Response: No adverse reaction; IV Status: Completed infusion jr10 09:44 Drug: Potassium Effervescent Tablet 50 mEq Route: PO; jr10 10:13 Follow up: Response: No adverse reaction jr10 Disposition: 17:25 Co-signature as Attending Physician, Cole Perez MD I agree with the assessment and kdr plan of care. Disposition: 09/05/19 09:11 Hospitalization ordered by Mega Krishnan for Inpatient Admission. Preliminary diagnosis are Hypoxemia, Pneumonia in diseases classified elsewhere, Coronavirus infection, unspecified. - Bed requested for Intensive Care Unit. - Status is Inpatient Admission. jr10 - Condition is Stable. - Problem is new. - Symptoms have improved. Signatures: Dispatcher [employer] EDMS Clare Nieves Kimberly, RN RN kl Rittger, Kevin, MD MD kdr Bethanie Eubanks RN RN Kalpesh Delvalle PA PA cp Rivera, Jessica, RN RN jr10 Corrections: (The following items were deleted from the chart) 09:35 08:10 Rate is 88 beats/min. Rhythm is regular. QRS interval is normal. QT interval is cp normal. cp 11:26 09:11 Hospitalization Ordered by Mega Krishnan MD for Inpatient Admission. Preliminary kl diagnosis is Hypoxemia; Pneumonia in diseases classified elsewhere; Coronavirus infection, unspecified. Bed requested for Telemetry/MedSurg (Inpatient). Status is Inpatient Admission. Condition is Stable. Problem is new. Symptoms have improved. cp 11:37 11:26 09/05/2019 09:11 Hospitalization Ordered by Mega Krishnan MD for Inpatient bd Admission. Preliminary diagnosis is Hypoxemia; Pneumonia in diseases classified elsewhere; Coronavirus infection, unspecified. Bed requested for Telemetry/MedSurg (Inpatient). Status is Inpatient Admission. Condition is Stable. Problem is new. Symptoms have improved. kl 12:14 11:37 09/05/2019 09:11 Hospitalization Ordered by Mega Krishnan MD for Inpatient jr10 Admission. Preliminary diagnosis is Hypoxemia; Pneumonia in diseases classified elsewhere; Coronavirus infection, unspecified. Bed requested for Intensive Care Unit. Status is Inpatient Admission. Condition is Stable. Problem is new. Symptoms have improved. bd
[2019-09-05] MEDS ORDERED: POTASSIUM 25 MEQ EFFERV TAB ONE (09:42)
[2019-09-05] MEDS ORDERED: CEFTRIAXONE/SWI 1gm 1 GM/10 ML SYR ONE (09:42)
[2019-09-05 11:04] LABS: Blood Morphology Comment NOT SEEN (NOT SEEN); Platelet Estimate ADEQ; Urine White Blood Cell Casts OK
--- NOTE | 2019-09-05 11:15 | RAD REPORT ---
EXAM DESCRIPTION: CT - Chest For Pe Angio - 09/05/2019 11:00 am CLINICAL HISTORY: Chest pain. Cough;Dyspnea;SOB COMPARISON: Chest Single View dated 09/05/2019 TECHNIQUE: CT angiogram of the pulmonary arteries was performed with MIP. All CT scans are performed using dose optimization technique as appropriate and may include automated exposure control or mA/KV adjustment according to patient size. FINDINGS: No evidence of pulmonary thromboembolism. No acute aortic finding demonstrated. Extensive bilateral alveolar and interstitial lung infiltrates are present most compatible with exten sive pneumonia. Trace pleural fluid is present. Mildly enlarged mediastinal and hilar lymphadenopathy is seen. No concerning bony finding. IMPRESSION: No evidence of pulmonary thromboembolism. Extensive bilateral pulmonary opacities are present most compatible with extensive pneumonia.
[2019-09-05] MEDS: INSULIN -REGULAR HUMAN 50 UNIT/0.5 ML ML SQ SCH ×3 (11:30→21:30)
--- NOTE | 2019-09-05 11:36 | P.HP ---
Certification for Inpatient Patient admitted to: Inpatient With expected LOS: >2 Midnights Patient will require the following post-hospital care: None Practitioner: I am a practitioner with admitting privileges, knowledge of patient current condition, hospital course, and medical plan of care. Services: Services provided to patient in accordance with Admission requirements found in Title 42 Section 412.3 of the Code of Federal Regulations <Eliu Ford - Last Filed: 09/05/19 11:30> Patient History Date of Service: 09/05/19 Reason for admission: Covid PNA History of Present Illness: 63-year-old female with past medical history of diabetes and hypertension who was seen in the ER 2 days ago returns back to the emergency room complaining of worsening shortness of breath, dyspnea on exertion and fever. Patient states that she is also having worsening body aches and no appetite. Patient was diagnosed positive Covid Positive 1 week ago. In the emergency room patient's blood work shows a white cell count of 10.7, platelets of 476-slightly elevated, glucose of to 0 7-slightly elevated and a procalcitonin of 0.10 which is within normal limits. Chest x-ray from today shows worsening bilateral pulmonary opacities when compared to chest x-ray from 09/02/2019. CTA is negative for PE but shows extensive bilateral pulmonary opacities most compatible with extensive pneumonia. On exam in the ER patient is calm. She is alert and oriented x3. She is not in respiratory distress but gets very winded with minimal exertion. She is requiring O2 support and patient does not use home oxygen. Patient will be admitted and further evaluated. - Past Medical/Surgical History Has patient received pneumonia vaccine in the past: No Diabetic: Yes -: Type 2 diabetes mellitus -: Hypertension -: None Psychosocial/ Personal History: Patient is and lives at home with . - Family History Family History: Reviewed- Non-Contributory - Social History Smoking Status: Never smoker Alcohol use: No CD- Drugs: No Caffeine use: No Place of Residence: Home <Eliu Ford - Last Filed: 09/05/19 11:30> Date of Service: 09/05/19 <Panfilo Krishnan - Last Filed: 09/05/19 16:38> Review of Systems General: Fever, As per HPI Eyes: Unremarkable ENT: Unremarkable Respiratory: Shortness of Breath, SOB with Excertion, As per HPI Cardiovascular: Unremarkable Gastrointestinal: Unremarkable Genitourinary: Unremarkable Musculoskeletal: Unremarkable Integumentary: Unremarkable Neurological: Unremarkable <Eliu Ford - Last Filed: 09/05/19 11:30> Physical Examination - Vital Signs Temperature: 99 F Blood Pressure: 135/88 Pulse: 96 Respirations: 18 Pulse Ox (%): 87 (RA) - Physical Exam General: Alert, In no apparent distress, Oriented x3 HEENT: Atraumatic, Normocephalic, PERRLA Neck: Supple, Other (Trachea midline) Respiratory: Diminished Cardiovascular: No edema, Normal pulses, Regular rate/rhythm Capillary refill: <2 Seconds Gastrointestinal: Normal bowel sounds, Soft and benign, Non-distended Musculoskeletal: No clubbing, No swelling, No contractures Integumentary: No rashes, No breakdown, No significant lesion Neurological: Normal speech, Normal strength at 5/5 x4 extr, Normal tone - Studies Laboratory Data (last 24 hrs) 09/05/19 07:45: PT 13.4 H, INR 1.14 09/05/19 07:45: WBC 10.7 D, Hgb 10.4 L, Hct 30.6 L D, Plt Count 476 H D 09/05/19 07:45: Sodium 136, Potassium 3.3 L, BUN 10, Creatinine 0.49 L, Glucose 207 H, Magnesium 2.0, Total Bilirubin 0.5, AST 78 H, ALT 109 H, Alkaline Phosphatase 172 H D <Eliu Ford - Last Filed: 09/05/19 11:30> - Studies Laboratory Data (last 24 hrs) 09/05/19 07:45: PT 13.4 H, INR 1.14 09/05/19 07:45: WBC 10.7 D, Hgb 10.4 L, Hct 30.6 L D, Plt Count 476 H D 09/05/19 07:45: Sodium 136, Potassium 3.3 L, BUN 10, Creatinine 0.49 L, Glucose 207 H, Magnesium 2.0, Total Bilirubin 0.5, AST 78 H, ALT 109 H, Alkaline Phosphatase 172 H D <Panfilo Krishnan - Last Filed: 09/05/19 16:38> Assessment and Plan - Plan Impression: Acute hypoxic respiratory failure secondary to diagnosis of positive Covid pneumonia: Type 2 diabetes mellitus with hyperglycemia: Essential hypertension: Plan: Acute hypoxic respiratory failure secondary to diagnosis of positive Covid pneumonia: Patient was diagnosed positive coded approximately 1 week ago. She has worsening shortness of breath. Chest x-ray shows worsening opacities and CTA of the chest shows no pulmonary embolism but extensive bilateral pulmonary opacities consistent with extensive pneumonia. Patient does state she had a fever at home. Temperature on arrival to the ED was 99. Will consult pulmonology. Will start patient on methylprednisolone 80 mg b.i.d. per MATH criteria. Will also add Thiamine 200mg D, zinc 220 mg daily, ascorbic acid 500 mg daily and Levaquin 500 mg daily dose empirically for possible pneumonia. Continue O2 support as well. Will trend CRP. Type 2 diabetes mellitus with hyperglycemia: In the emergency room glucose was elevated to 207. Will place patient on sliding scale insulin. Accu-Cheks a.c. HS. Will resume home medications once verified. Patient takes metformin and Januvia. Essential hypertension: Will monitor blood pressure. Will resume home medications. Will order hydralazine 10 mg q.4 hr for systolic blood pressure greater than 160 and diastolic blood pressure greater than 100. Patient may require greater than 2 midnight stay due to her shortness of breath and possible new diagnosis of bilateral pneumonia on top of being positive for Covid. Discharge Plan: Home Plan to discharge in: 72 Hours - Advance Directives Does patient have a Living Will: No Does patient have a Durable POA for Healthcare: No - Code Status/Comfort Care Code Status Assessed: Yes Time Spent Managing Pts Care (In Minutes): 55 <Eliu Ford - Last Filed: 09/05/19 11:30> Physician Review: Patient Assessed, Agree with Above Assessment and Plan Physician Review Additional Text: Patient was seen and examined and findings were discussed Agree with the assessment and plan as documented by the EULALIO <Panfilo Krishnan - Last Filed: 09/05/19 16:38>
[2019-09-05] MEDS ORDERED: Levofloxacin500mg IV 500 MG/100 ML BAG IV SCH (12:00)
--- NOTE | 2019-09-05 12:29 | P.CNS ---
Date of Consult: 09/05/19 Reason for Consult: coyle virus pneumonia Chief Complaint: Covid PNA History of Present Illness: patient is 63 years of age with a history of diabetes hypertension was came to the emergency room 2 days ago shortness of breath was discharged came back again with respiratory failure from coyle virus 7 bodyaches no appetite complaining of fatigue - Past Medical/Surgical History Diabetic: Yes -: Type 2 diabetes mellitus -: Hypertension -: None Psychosocial/ Personal History: Patient is and lives at home with . - Social History Alcohol use: No CD- Drugs: No Caffeine use: No Place of Residence: Home Review of Systems General: Weakness Respiratory: Shortness of Breath Physical Examination Temp Pulse Resp BP Pulse Ox 99 F 96 H 18 135/88 87 L 09/05/19 11:46 09/05/19 11:46 09/05/19 11:46 09/05/19 11:46 09/05/19 11:46 Laboratory Data (last 24 hrs) 09/05/19 07:45: PT 13.4 H, INR 1.14 09/05/19 07:45: WBC 10.7 D, Hgb 10.4 L, Hct 30.6 L D, Plt Count 476 H D 09/05/19 07:45: Sodium 136, Potassium 3.3 L, BUN 10, Creatinine 0.49 L, Glucose 207 H, Magnesium 2.0, Total Bilirubin 0.5, AST 78 H, ALT 109 H, Alkaline Phosphatase 172 H D - Problems (1) Pneumonia due to human coronavirus Current Visit: Yes Status: Acute Plan: patient is 63 years of age admitted with respiratory failure from coyle virus she has got bilateral changes characteristic of coyle virus id CRP is very elevated abnormal liver function test continue with treatment as per map protocol agree with higher doses of Solu-Medrol for now monitor CRP levels an oxygenation labs reviewed
[2019-09-05 15:32] VITALS: BMI 25.1
[2019-09-05] MEDS: ASCORBIC ACID 500 MG TABLET PO SCH (17:16)
[2019-09-05] MEDS: VITAMIN D 1000 UNIT TAB PO SCH (17:16)
[2019-09-05] MEDS: ZINC SULFATE 220 MG CAP PO SCH (17:16)
[2019-09-05] MEDS: THIAMINE HCL 100 MG TABLET PO SCH (17:16)
[2019-09-05] MEDS: ENOXAPARIN 60 MG/0.6 ML SQ SCH (17:16)
[2019-09-05] MEDS ORDERED: METHYLPREDNISOLONE 40 MG INJ IV SCH (21:00)
[2019-09-05] MEDS ORDERED: MELATONIN 3 MG TABLET PO SCH (21:00)
[2019-09-05] MEDS: MELATONIN 3 MG TABLET PO SCH (21:10)
[2019-09-05] MEDS: ATORVASTATIN 40 MG TAB PO SCH (21:11)
[2019-09-05] MEDS: ACETAMINOPHEN 500 MG TAB PO PRN (21:11)
[2019-09-05 21:42] LABS: Urine Appearance CLEAR; Urine Bilirubin NEGATIVE (NEG); Urine Blood NEGATIVE (NEG); Urine Color YELLOW; Urine Glucose 2+ (NEG); Urine Protein 1+ (NEG); Urine Specific Gravity >=1.030 (1.005-1.030)
[2019-09-05 21:43] LABS: Urine Microscopic Reflex ORDER UMIC
[2019-09-05 21:54] LABS: Urine Bacteria <20 /HPF (<20); Urine Culture Reflex Order NOT NEEDED; Urine RBC <5 /HPF (NONE SEEN); Urine Urothelial Cells <5 /HPF (NONE SEEN)
[2019-09-06 05:15] LABS: Absolute Lymphocytes (CBC) 0.6 K/uL (0.7-4.9); Basophils % 0.1 % (0-1.3); Hematocrit 38.3 % (36.0-45.0); Lymphocytes % 4.7 % (15.3-44.8); RBC Red Blood Cell Count 4.45 M/uL (3.86-4.86)
[2019-09-06] MEDS: GUAIFENESIN/CODEINE 5ML UCUP PO PRN ×2 (05:30→20:27)
[2019-09-06 05:42] LABS: BUN Blood Urea Nitrogen 15 mg/dL (7-18); Bicarbonate 28 mmol/L (21-32); Glucose Level 276 mg/dL (74-106); Magnesium 2.5 mg/dL (1.8-2.4); Potassium 4.2 mmol/L (3.5-5.1); Sodium Level 140 mmol/L (136-145)
[2019-09-06] MEDS: METHYLPREDNISOLONE 125 MG INJ IV SCH ×3 (06:58→22:28)
[2019-09-06] MEDS: INSULIN -REGULAR HUMAN 50 UNIT/0.5 ML ML SQ SCH ×5 (07:30→20:28)
--- NOTE | 2019-09-06 07:34 | EKG ---
Test Date: 2019-09-05 Test Time: 08:03:04 Powerhouse Mechanic: EMILIANO MEASUREMENT RESULTS: Intervals: Rate: 88 IN: QRSD: 78 QT: 352 QTc: 425 [place]: P: IN: QRS: 69 T: 96 INTERPRETIVE STATEMENTS: Accelerated Junctional rhythm Low voltage QRS Marked ST abnormality, possible lateral subendocardial injury Abnormal ECG No previous ECG available for comparison Electronically Signed On 09-06-19 07:32:35 CDT by Rajat Lion
[2019-09-06] MEDS: ACETAMINOPHEN 500 MG TAB PO PRN (08:28)
[2019-09-06] MEDS: THIAMINE HCL 100 MG TABLET PO SCH (08:29)
[2019-09-06] MEDS: ZINC SULFATE 220 MG CAP PO SCH (08:29)
[2019-09-06] MEDS: VITAMIN D 1000 UNIT TAB PO SCH (08:31)
[2019-09-06] MEDS: ENOXAPARIN 60 MG/0.6 ML SQ SCH (08:31)
[2019-09-06] MEDS ORDERED: ENOXAPARIN 40 MG/0.4 ML SQ SCH (09:00)
--- NOTE | 2019-09-06 09:18 | P.PN ---
Subjective Date of Service: 09/06/19 Chief Complaint: Covid PNA Subjective: Improving, Doing well Review of Systems General: As per HPI Eyes: Unremarkable ENT: Unremarkable Respiratory: Cough, Shortness of Breath Cardiovascular: Unremarkable Gastrointestinal: Unremarkable Genitourinary: Unremarkable Musculoskeletal: Unremarkable Integumentary: Unremarkable Neurological: Unremarkable Physical Examination - Vital Signs Temperature: 97.1 F Blood Pressure: 127/62 Pulse: 69 Respirations: 20 Pulse Ox (%): 90 - Physical Exam General: Alert, In no apparent distress, Oriented x3 HEENT: Atraumatic, Normocephalic, PERRLA Neck: Supple, No Thyromegaly Respiratory: Clear to auscultation bilaterally, Diminished Cardiovascular: No edema, Normal pulses Capillary refill: <2 Seconds Gastrointestinal: Normal bowel sounds, Soft and benign, Non-distended Musculoskeletal: No swelling, No contractures, No erythema Integumentary: No rashes, No breakdown, No significant lesion Neurological: Normal speech, Normal strength at 5/5 x4 extr, Normal tone - Studies Laboratory Data (last 24 hrs) 09/05/19 07:45: WBC 10.7 D, Hgb 10.4 L, Hct 30.6 L D, Plt Count 476 H D Assessment And Plan - Plan Impression: Acute hypoxic respiratory failure secondary to diagnosis of positive Covid pneumonia: Type 2 diabetes mellitus with hyperglycemia: Essential hypertension: Plan: Acute hypoxic respiratory failure secondary to diagnosis of positive Covid pneumonia: Patient was diagnosed positive Covid approximately 1 week ago. She has worsening shortness of breath. Chest x-ray shows worsening opacities and CTA of the chest shows no pulmonary embolism but extensive bilateral pulmonary opacities consistent with extensive pneumonia. Patient does state she had a fever at home. Temperature on arrival to the ED was 99. Today it is 97.1. Pulmonology following. Methylprednisolone was increased to 125 q.8 hr. Continue Thiamine 200mg D, zinc 220 mg daily, ascorbic acid 500 mg daily and Levaquin 500 mg daily dose empirically for possible pneumonia. Continue O2 support as well. Currently 90% on 4 L nasal cannula. She is still coughing and has cough medication ordered. CRP is trending down from 211 to 174. Patient is improving. Likely discharge in the next 24-48 hr. Type 2 diabetes mellitus with hyperglycemia: In the emergency room glucose was elevated to 207. Continue on sliding scale insulin. Accu-Cheks a.c. HS. Will resume home medications once verified. Patient takes metformin and Januvia. Essential hypertension: Continue to monitor blood pressure. Will resume home medications once verified. Will order hydralazine 10 mg q.4 hr for systolic blood pressure greater than 160 and diastolic blood pressure greater than 100. Discharge Plan: Home Plan to discharge in: 48 Hours - Code Status/Comfort Care Code Status Assessed: Yes Physician Review: Patient Assessed, Agree with Above Assessment and Plan Physician Review Additional Text: Patient was seen and examined and findings were discussed Agree with the assessment and plan as documented by the EULALIO Time Spent Managing PTS Care (In Minutes): 45
--- NOTE | 2019-09-06 12:14 | P.PN ---
Subjective Date of Service: 09/06/19 (TV) Chief Complaint: Covid PNA Subjective: Improving (Doign better on NC O2 .CRP still high) Physical Examination - Vital Signs Temperature: 97.1 F Blood Pressure: 131/67 Pulse: 78 Respirations: 18 Pulse Ox (%): 86 Assessment & Plan - Problems (Diagnosis) (1) Pneumonia due to human coronavirus Current Visit: Yes Status: Acute Plan: Improving. Increase solumederol. Aim for CRP less than 10 On nasal canula O2 . Poss D/C 1-2 Physician Review: Patient Assessed, Agree with Above Assessment and Plan
[2019-09-06] MEDS: BENZONATATE 100 MG CAP PO PRN (15:00)
[2019-09-06] MEDS: ASCORBIC ACID 500 MG TABLET PO SCH (16:44)
[2019-09-06] MEDS: ATORVASTATIN 40 MG TAB PO SCH (20:27)
[2019-09-06] MEDS: MELATONIN 3 MG TABLET PO SCH (20:28)
[2019-09-07] MEDS: BENZONATATE 100 MG CAP PO PRN (04:30)
[2019-09-07] MEDS: METHYLPREDNISOLONE 125 MG INJ IV SCH ×3 (06:00→16:21)
[2019-09-07] MEDS: INSULIN -REGULAR HUMAN 50 UNIT/0.5 ML ML SQ SCH ×4 (08:22→21:00)
[2019-09-07] MEDS: VITAMIN D 1000 UNIT TAB PO SCH (08:22)
[2019-09-07] MEDS: ASCORBIC ACID 500 MG TABLET PO SCH (08:22)
[2019-09-07] MEDS: ZINC SULFATE 220 MG CAP PO SCH (08:23)
[2019-09-07] MEDS: THIAMINE HCL 100 MG TABLET PO SCH (08:23)
[2019-09-07] MEDS: ENOXAPARIN 60 MG/0.6 ML SQ SCH (08:23)
[2019-09-07] MEDS: GUAIFENESIN/CODEINE 5ML UCUP PO PRN (08:27)
[2019-09-07] MEDS ORDERED: GLUCAGON 1 MG/VIAL IM PRN (09:58)
[2019-09-07] MEDS ORDERED: D50W 25 GM/50 ML SYRINGE/VIAL IV PRN (09:58)
--- NOTE | 2019-09-07 11:13 | P.PN ---
Subjective Date of Service: 09/07/19 Chief Complaint: Covid PNA Subjective: Improving (Patient is a stable improving CRP is declining still short of breath patient is subjectively feeling better) Review of Systems General: Weakness Respiratory: Shortness of Breath Physical Examination - Vital Signs Temperature: 97.8 F Blood Pressure: 139/68 Pulse: 73 Respirations: 20 Pulse Ox (%): 89 Assessment & Plan - Problems (Diagnosis) (1) Pneumonia due to human coronavirus Current Visit: Yes Status: Acute Plan: Patient has respiratory failure from coronal virus are CRP levels are declining is short of breath on minimal exertion CRP has declined significantly I have increased the dose of steroids will trying to wean down by tomorrow Physician Review: Patient Assessed, Agree with Above Assessment and Plan
--- NOTE | 2019-09-07 12:44 | P.PN ---
Subjective Date of Service: 09/07/19 Chief Complaint: Covid PNA Subjective: Improving (Slowly. On 4 L nasal cannula but still having problems maintaining O2 saturations of 90%.), Doing well Review of Systems General: As per HPI Eyes: Unremarkable ENT: Unremarkable Respiratory: Shortness of Breath Cardiovascular: Unremarkable Gastrointestinal: Unremarkable Genitourinary: Unremarkable Musculoskeletal: Unremarkable Integumentary: Unremarkable Neurological: Unremarkable Physical Examination - Vital Signs Temperature: 97.8 F Blood Pressure: 139/68 Pulse: 73 Respirations: 20 Pulse Ox (%): 89 - Physical Exam General: Alert, In no apparent distress, Oriented x3 HEENT: Atraumatic, Normocephalic, PERRLA, Mucous membr. moist/pink Neck: Supple, No Thyromegaly Respiratory: Clear to auscultation bilaterally, Diminished (On 4 L nasal cannula) Cardiovascular: No edema, Normal pulses, Regular rate/rhythm Gastrointestinal: Normal bowel sounds, Soft and benign, Non-distended Musculoskeletal: No swelling, No contractures, No erythema Integumentary: No breakdown, No tenderness/swelling, No erythema, No warmth Neurological: Normal gait, Normal speech, Normal strength at 5/5 x4 extr, Normal tone Assessment And Plan - Plan Impression: Acute hypoxic respiratory failure secondary to diagnosis of positive Covid pneumonia: Type 2 diabetes mellitus with hyperglycemia: Essential hypertension: Plan: Acute hypoxic respiratory failure secondary to diagnosis of positive Covid pneumonia: Patient was diagnosed positive Covid approximately 1 week prior to admission. She is slowly improving. Chest x-ray on admission showed worsening opacities and CTA of the chest showed no pulmonary embolism but extensive bilat eral pulmonary opacities consistent with extensive pneumonia. Patient does state she had a fever at home prior to admission. Temperature on arrival to the ED was 99. Today it is 97.8. Pulmonology following. Methylprednisolone was increased to 125 q.8 hr. Continue Thiamine 200mg D, zinc 220 mg daily, ascorbic acid 500 mg daily and Levaquin 500 mg daily dose empirically for possible pneumonia. Continue O2 support as well. Patient has been on 4 L nasal cannula but is having difficulty maintaining oxygen saturations above 90%. She will desat into the mid to low 80s just speaking. She will be switched to high-flow O2 and slowly weaned back to nasal cannula. Once patient can maintain O2 saturations above 90% on 4 L nasal cannula She will be ready for discharge. Will discuss with addiction social worker to have oxygen setup prior to discharge. Patient will likely need O2 at home once discharged. Type 2 diabetes mellitus with hyperglycemia: Blood glucose of 302 today. Will switch to high sliding scale insulin. Accu-Cheks a.c. HS. Essential hypertension: Continue to monitor blood pressure. Will resume home medications once verified. Continue hydralazine 10 mg q.4 hr for systolic blood pressure greater than 160 and diastolic blood pressure greater than 100. Discharge Plan: Home Plan to discharge in: 48 Hours - Code Status/Comfort Care Code Status Assessed: Yes Physician Review: Patient Assessed, Agree with Above Assessment and Plan Physician Review Additional Text: Patient was seen and examined and findings were discussed Agree with the assessment and plan as documented by the EULALIO Time Spent Managing PTS Care (In Minutes): 50
[2019-09-07] MEDS ORDERED: HOME MED 1 EA UNK (Pravastatin Sodium [Pravastatin Sodium] 40 MG) PO SCH (21:00)
[2019-09-07] MEDS ORDERED: HOME MED 1 EA UNK (Lisinopril/Hydrochlorothiazide [Lisinopril-Hctz 20-12.5 Mg Tab] 1 TAB) PO SCH (21:00)
[2019-09-07] MEDS: lisinopriL 20 MG TAB PO SCH (21:00)
[2019-09-07] MEDS: ATORVASTATIN 10 MG TAB PO SCH (21:00)
[2019-09-07] MEDS: hydroCHLOROthiazide 12.5 MG CAP PO SCH (21:00)
[2019-09-07] MEDS: MELATONIN 3 MG TABLET PO SCH (21:29)
[2019-09-08] MEDS: METHYLPREDNISOLONE 125 MG INJ IV SCH ×4 (00:15→17:25)
[2019-09-08] MEDS: PANTOPRAZOLE 40MG TABLET PO SCH ×2 (07:30→10:00)
[2019-09-08] MEDS: INSULIN -REGULAR HUMAN 50 UNIT/0.5 ML ML SQ SCH ×4 (08:59→21:00)
[2019-09-08] MEDS: ZINC SULFATE 220 MG CAP PO SCH (08:59)
[2019-09-08] MEDS: hydroCHLOROthiazide 12.5 MG CAP PO SCH ×2 (08:59→21:25)
[2019-09-08] MEDS: lisinopriL 20 MG TAB PO SCH ×2 (09:00→21:28)
[2019-09-08] MEDS ORDERED: HOME MED 1 EA UNK (Omeprazole [Omeprazole] 20 MG) PO SCH (09:00)
[2019-09-08] MEDS: ASCORBIC ACID 500 MG TABLET PO SCH (09:00)
[2019-09-08] MEDS: VITAMIN D 1000 UNIT TAB PO SCH (09:00)
[2019-09-08] MEDS: THIAMINE HCL 100 MG TABLET PO SCH (09:00)
[2019-09-08] MEDS: ENOXAPARIN 60 MG/0.6 ML SQ SCH (09:01)
--- NOTE | 2019-09-08 09:04 | P.PN ---
Subjective Date of Service: 09/08/19 (TV) Chief Complaint: Covid PNA Subjective: Improving (Doign better No complaints) Physical Examination - Vital Signs Temperature: 97 F Blood Pressure: 153/66 Pulse: 70 Respirations: 14 Pulse Ox (%): 92 Assessment & Plan - Problems (Diagnosis) (1) Pneumonia due to human coronavirus Current Visit: Yes Status: Acute Plan: Improveing. CRP <50, titrate O2 to nasal cannula. Plan for discharge. Reduce steroids. NICHOLE Nurse Physician Review: Patient Assessed, Agree with Above Assessment and Plan
--- NOTE | 2019-09-08 11:34 | P.PN ---
Subjective Date of Service: 09/08/19 Chief Complaint: Covid PNA Subjective: Improving, Doing well Requiring less O2 support. Will wean off high-flow to nasal cannula. <Eliu Ford - Last Filed: 09/08/19 11:28> Date of Service: 09/08/19 <DianaWillie julio - Last Filed: 09/08/19 17:25> Review of Systems General: As per HPI Eyes: Unremarkable ENT: Unremarkable Respiratory: Shortness of Breath, As per HPI Cardiovascular: Unremarkable Gastrointestinal: Unremarkable Genitourinary: Unremarkable Musculoskeletal: Unremarkable Integumentary: Unremarkable Neurological: Unremarkable <Eliu Ford - Last Filed: 09/08/19 11:28> Physical Examination - Vital Signs Temperature: 97 F Blood Pressure: 153/66 Pulse: 70 Respirations: 14 Pulse Ox (%): 92 - Physical Exam General: Alert, In no apparent distress, Oriented x3 HEENT: Atraumatic, Normocephalic, PERRLA Neck: Supple, No Thyromegaly Respiratory: Clear to auscultation bilaterally, Diminished, Other (On high-flow O2) Cardiovascular: No edema, Normal pulses, Regular rate/rhythm, Normal S1 S2 Capillary refill: <2 Seconds Gastrointestinal: Normal bowel sounds, Soft and benign, Non-distended Musculoskeletal: No swelling, No contractures, No erythema Integumentary: No breakdown, No tenderness/swelling, No erythema Neurological: Normal gait, Normal speech, Normal strength at 5/5 x4 extr, Normal tone <Eliu Ford - Last Filed: 09/08/19 11:28> Assessment And Plan - Plan Impression: Acute hypoxic respiratory failure secondary to diagnosis of positive Covid pneumonia: Type 2 diabetes mellitus with hyperglycemia: Essential hypertension: Plan: Acute hypoxic respiratory failure secondary to diagnosis of positive Covid pneumonia: Patient was diagnosed positive Covid approximately 1 week prior to this admission. She is slowly improving. Chest x-ray on admission showed worsening opacities and CTA of the chest showed no pulmonary embolism but extensive bilateral pulmonary opacities consistent with extensive pneumonia. Patient does state she had a fever at home prior to admission. Temperature on arrival to the ED was 99. Today it is 97. Pulmonology following. Methylprednisolone was decreased to 80 mg q.8 hr. Continue Thiamine 200mg D, zinc 220 mg daily, ascorbic acid 500 mg daily and Levaquin 500 mg daily dose empirically for possible pneumonia. Continue O2 support as well. Patient had been on 4 L nasal cannula but was having difficulty maintaining oxygen saturations above 90%. She would desat into the mid to low 80s just speaking. She is currently on high-flow O2 and slowly being weaned back to nasal cannula. Once patient can maintain O2 saturations above 90% on 4 L nasal cannula She will be ready for discharge. Home oxygen has been received and is in room. Patient's CRP continues trending down and today is 48. Type 2 diabetes mellitus with hyperglycemia: Blood glucose still elevated with a.m. blood draws. Will continue to use high sliding scale insulin. Accu-Cheks a.c. HS. Level is likely high secondary to the use of steroids. Essential hypertension: Continue to monitor blood pressure. Continue hydralazine 10 mg q.4 hr for systolic blood pressure greater than 160 and diastolic blood pressure greater than 100. Discharge Plan: Home Plan to discharge in: 48 Hours - Code Status/Comfort Care Code Status Assessed: Yes Physician Review: Patient Assessed, Agree with Above Assessment and Plan Physician Review Additional Text: Patient was seen and examined and findings were discussed Agree with the assessment and plan as documented by the EULALIO Time Spent Managing PTS Care (In Minutes): 45 <Eliu Ford - Last Filed: 09/08/19 11:28> - Plan Agree with physician clinical research assistant. Plan of care reviewed in detail. Continue monitor closely. Anticipate discharge in the next 1-2 days. <Willie Reeves - Last Filed: 09/08/19 17:25>
[2019-09-08] MEDS: GUAIFENESIN/CODEINE 5ML UCUP PO PRN (17:33)
[2019-09-08 17:59] LABS: Urine Appearance CLEAR; Urine Bilirubin NEGATIVE (NEG); Urine Blood NEGATIVE (NEG); Urine Color YELLOW; Urine Glucose 3+ (NEG); Urine Protein NEGATIVE (NEG); Urine Specific Gravity 1.025 (1.005-1.030)
[2019-09-08 19:18] LABS: Urine Bacteria <20 /HPF (<20); Urine Culture Reflex Order NOT NEEDED; Urine RBC NONE SEEN /HPF (NONE SEEN)
[2019-09-08] MEDS: ATORVASTATIN 10 MG TAB PO SCH (21:27)
[2019-09-08] MEDS: BENZONATATE 100 MG CAP PO PRN (21:28)
[2019-09-08] MEDS: MELATONIN 3 MG TABLET PO SCH (21:28)
[2019-09-09] MEDS: METHYLPREDNISOLONE 125 MG INJ IV SCH (01:14)
[2019-09-09 05:56] LABS: Absolute Lymphocytes (CBC) 0.9 K/uL (0.7-4.9); Basophils % 0.2 % (0-1.3); Hematocrit 32.5 % (36.0-45.0); Lymphocytes % 4.1 % (15.3-44.8); RBC Red Blood Cell Count 3.83 M/uL (3.86-4.86)
[2019-09-09 06:01] LABS: BUN Blood Urea Nitrogen 25 mg/dL (7-18); Bicarbonate 31 mmol/L (21-32); Glucose Level 284 mg/dL (74-106); Magnesium 2.5 mg/dL (1.8-2.4); Potassium 3.5 mmol/L (3.5-5.1); Sodium Level 137 mmol/L (136-145)
[2019-09-09 08:24] LABS: Blood Morphology Comment NOT SEEN (NOT SEEN); Platelet Estimate INCR; Platelets, Giant FEW
[2019-09-09] MEDS: ENOXAPARIN 60 MG/0.6 ML SQ SCH (08:28)
[2019-09-09] MEDS: INSULIN -REGULAR HUMAN 50 UNIT/0.5 ML ML SQ SCH ×4 (08:28→20:34)
[2019-09-09] MEDS: hydroCHLOROthiazide 12.5 MG CAP PO SCH ×2 (08:29→20:33)
[2019-09-09] MEDS: lisinopriL 20 MG TAB PO SCH ×2 (08:30→20:35)
[2019-09-09] MEDS: THIAMINE HCL 100 MG TABLET PO SCH (08:30)
[2019-09-09] MEDS: ASCORBIC ACID 500 MG TABLET PO SCH (08:30)
[2019-09-09] MEDS: ZINC SULFATE 220 MG CAP PO SCH (08:30)
[2019-09-09] MEDS: predniSONE 20 MG TAB PO SCH ×2 (08:30→20:33)
[2019-09-09] MEDS: PANTOPRAZOLE 40MG TABLET PO SCH (08:31)
[2019-09-09] MEDS: VITAMIN D 1000 UNIT TAB PO SCH (08:31)
--- NOTE | 2019-09-09 09:47 | RAD REPORT ---
EXAM DESCRIPTION: Anu Single View09/09/2019 9:27 am CLINICAL HISTORY: Chest pain COMPARISON: September 04 FINDINGS: Improvement bilateral pulmonary opacities. The heart is normal size IMPRESSION: Mild to moderate improvement in bilateral pneumonia
--- NOTE | 2019-09-09 09:54 | P.PN ---
Subjective Date of Service: 09/09/19 Chief Complaint: Covid PNA Subjective: Improving (Patient is doing better still little short of breath) Review of Systems Respiratory: Shortness of Breath Physical Examination - Vital Signs Temperature: 97 F Blood Pressure: 143/74 Pulse: 54 Respirations: 20 Pulse Ox (%): 90 Assessment & Plan - Problems (Diagnosis) (1) Pneumonia due to human coronavirus Current Visit: Yes Status: Acute Plan: Patient is improving doing well plan to titrate O2 to sat of 90% with at least 4 L of nasal cannula oxygen agree the changing over to p.o. prednisone CRP levels lower down significantly possible discharge tomorrow Physician Review: Patient Assessed, Agree with Above Assessment and Plan
--- NOTE | 2019-09-09 11:13 | P.PN ---
Subjective Date of Service: 09/09/19 Chief Complaint: Covid PNA Subjective: Improving, Doing well, Other (Cooperative and pleasant) Requiring less O2 support. Will wean off high-flow to nasal cannula. Review of Systems General: As per HPI Eyes: Unremarkable ENT: Unremarkable Respiratory: Shortness of Breath (Improving) Cardiovascular: Unremarkable Gastrointestinal: Unremarkable Genitourinary: Unremarkable Musculoskeletal: Unremarkable Integumentary: Unremarkable Neurological: Unremarkable Lymphatics: Unremarkable Physical Examination - Vital Signs Temperature: 97 F Blood Pressure: 143/74 Pulse: 54 Respirations: 20 Pulse Ox (%): 90 - Physical Exam General: Alert, In no apparent distress, Oriented x3 HEENT: Atraumatic, Normocephalic, PERRLA Neck: Supple, No Thyromegaly Respiratory: Clear to auscultation bilaterally, Diminished Cardiovascular: No edema, Normal pulses, Regular rate/rhythm, Normal S1 S2 Capillary refill: <2 Seconds Gastrointestinal: Normal bowel sounds, Soft and benign, Non-distended Musculoskeletal: No clubbing, No swelling, No contractures Integumentary: No rashes, No breakdown, No significant lesion, No tenderness/swelling Neurological: Normal gait, Normal speech, Normal strength at 5/5 x4 extr, Normal tone Assessment And Plan - Plan Impression: Acute hypoxic respiratory failure secondary to diagnosis of positive Covid pneumonia: Type 2 diabetes mellitus with hyperglycemia: Essential hypertension: Plan: Acute hypoxic respiratory failure secondary to diagnosis of positive Covid pneumonia: Patient was diagnosed positive Covid approximately 1 week prior to this admission. She continue slowly improving. Chest x-ray on admission showed worsening opacities and CTA of the chest showed no pulmonary embolism but extensive bilateral pulmonary opacities consistent with extensive pneumonia. Follow-up chest x-ray done today shows [id number] improvement in bilateral pneumonia. Her white cell count has increased to 21 K. After discussing with Pulmonary this is likely related to steroid use and not infection. Her vitals have remained stable. She is afebrile and states that she feels much better. Cultures are negative. Pulmonology following. IV methylprednisone was discontinued. Patient was switched to prednisone 20 mg b.i.d.. Were monitor white cell count and daily labs. Continue Thiamine 200mg D, zinc 220 mg daily, ascorbic acid 500 mg daily. Patient was on Levaquin 500 mg daily dose empirica lly for possible pneumonia. Was discontinued today. Continue O2 support as well. Patient has been on 4 L nasal cannula with oxygen saturations above 90%. Home oxygen has been received and is in room. Patient will need concentrator delivered to home which may not happen until tomorrow. Patient's CRP continues trending down and today is 29.4. Patient will likely be ready for discharge tomorrow assuming white cell count trends down after reduction in steroids. Type 2 diabetes mellitus with hyperglycemia: Blood glucose still elevated with a.m. blood draws. Will continue to use high sliding scale insulin. Accu-Cheks a.c. HS. Level is likely high secondary to the use of steroids. Essential hypertension: Continue to monitor blood pressure. Continue hydralazine 10 mg q.4 hr for systolic blood pressure greater than 160 and diastolic blood pressure greater than 100. Discharge Plan: Home Plan to discharge in: 24 Hours - Code Status/Comfort Care Code Status Assessed: Yes Physician Review: Patient Assessed, Agree with Above Assessment and Plan Physician Review Additional Text: Patient was seen and examined and findings were discussed Agree with the assessment and plan as documented by the EULALIO Time Spent Managing PTS Care (In Minutes): 45
[2019-09-09] MEDS: ATORVASTATIN 10 MG TAB PO SCH (20:32)
[2019-09-09] MEDS: MELATONIN 3 MG TABLET PO SCH (20:34)
[2019-09-09] MEDS: BENZONATATE 100 MG CAP PO PRN (20:34)
[2019-09-09] MEDS ORDERED: INSULIN 70/30 100 UNITS/ML SQ ONE (21:14)
[2019-09-10 04:44] LABS: Absolute Lymphocytes (CBC) 1.2 K/uL (0.7-4.9); Basophils % 0.2 % (0-1.3); Hematocrit 35.3 % (36.0-45.0); Lymphocytes % 6.6 % (15.3-44.8); MPV 8.3 fL (7.6-11.3); RBC Red Blood Cell Count 4.19 M/uL (3.86-4.86)
[2019-09-10 05:02] LABS: BUN Blood Urea Nitrogen 23 mg/dL (7-18); Bicarbonate 32 mmol/L (21-32); Glucose Level 276 mg/dL (74-106); Magnesium 2.1 mg/dL (1.8-2.4); Potassium 3.5 mmol/L (3.5-5.1); Sodium Level 138 mmol/L (136-145)
[2019-09-10 05:23] VITALS: TEMP 98.4
[2019-09-10] MEDS ORDERED: PANTOPRAZOLE 40MG TABLET PO SCH (07:30)
[2019-09-10] MEDS: INSULIN -REGULAR HUMAN 50 UNIT/0.5 ML ML SQ SCH ×2 (08:06→11:30)
[2019-09-10] MEDS: VITAMIN D 1000 UNIT TAB PO SCH (08:07)
[2019-09-10] MEDS: ZINC SULFATE 220 MG CAP PO SCH (08:07)
[2019-09-10] MEDS: hydroCHLOROthiazide 12.5 MG CAP PO SCH (08:07)
[2019-09-10] MEDS: predniSONE 20 MG TAB PO SCH (08:08)
[2019-09-10] MEDS: ASCORBIC ACID 500 MG TABLET PO SCH (08:08)
[2019-09-10] MEDS: THIAMINE HCL 100 MG TABLET PO SCH (08:08)
[2019-09-10] MEDS: lisinopriL 20 MG TAB PO SCH (08:09)
[2019-09-10] MEDS: PANTOPRAZOLE 40MG TABLET PO SCH (08:09)
[2019-09-10] MEDS: ENOXAPARIN 60 MG/0.6 ML SQ SCH (08:10)
--- NOTE | 2019-09-10 08:53 | P.PN ---
Subjective Date of Service: 09/10/19 Chief Complaint: Covid PNA Subjective: Improving (Patient is doing much better 92% on 5 L) Review of Systems General: Weakness Respiratory: Shortness of Breath Physical Examination - Vital Signs Temperature: 98.4 F Blood Pressure: 158/100 Pulse: 64 Respirations: 17 Pulse Ox (%): 95 - Studies Microbiology Data (last 24 hrs): 09/05/19 07:45 Blood - Blood Aerobic Blood Culture - Final No growth in 5 days. 09/05/19 07:45 Blood - Blood Anaerobic Blood Culture - Final No growth in 5 days. 09/05/19 07:54 Blood - Blood Aerobic Blood Culture - Final No growth in 5 days. 09/05/19 07:54 Blood - Blood Anaerobic Blood Culture - Final No growth in 5 days. Assessment & Plan - Problems (Diagnosis) (1) Pneumonia due to human coronavirus Current Visit: Yes Status: Acute Plan: Patient is doing matter possible discharge on nasal cannula oxygen CRP level is less than 20 discharged on prednisone 20 b.i.d. for a week in addition to multi vitamin supplement consider low-dose anticoagulation if possible Physician Review: Patient Assessed, Agree with Above Assessment and Plan
[2019-09-10] MEDS ORDERED: POTASSIUM CL SA 10 MEQ TAB PO ONE (09:00)
[2019-09-10 11:33] VITALS: O2SAT 92
[2019-09-10 11:36] VITALS: BP 148/78
--- NOTE | 2019-09-10 11:38 | P.DS ---
Admission Date: 09/05/19 Discharge Date: 09/10/19 Disposition: DC HOME/HOME HEALTH CARE Discharge Condition: GOOD Reason for Admission: Covid PNA - Problems (1) COVID-19 Current Visit: Yes Status: Acute Hospital Course: Patient is a 63-year-old female with a past medical history of [id number] diabetes mellitus was admitted with acute hypoxemic respiratory failure due to ovoid 19 pneumonia. She was treated with systemic cortical steroids, prophylactic anti coagulation and multi-vitamins and improved throughout her hospitalization. She will be discharged on home oxygen and prednisone to follow-up with pulmonology.. Vital Signs/Physical Exam: Temp Pulse Resp BP Pulse Ox 98.4 F 71 19 134/69 91 09/10/19 08:53 09/10/19 10:00 09/10/19 10:00 09/10/19 10:00 09/10/19 10:00 General: Alert, In no apparent distress, Cooperative, Other (Comfortable and spe aking in full sentences) HEENT: Atraumatic, Normocephalic, EOMI Neck: Supple Respiratory: Other (Nonlabored breathing. No wheezing or crackles heard.) Cardiovascular: No edema, Normal pulses, Regular rate/rhythm, Normal S1 S2 Gastrointestinal: Normal bowel sounds, Soft and benign, Non-distended Musculoskeletal: No clubbing, No swelling, No contractures, No erythema, No tenderness, No warmth Integumentary: No rashes, No breakdown, No significant lesion, No tenderness/swelling, No erythema, No warmth, No cyanosis Neurological: Normal speech, Normal strength at 5/5 x4 extr, Normal tone, Sensation intact, Normal affect Laboratory Data at Discharge: WBC 18.9 K/uL (4.3-10.9) H 09/10/19 04:03 Hgb 12.1 g/dL (12.0-15.0) 09/10/19 04:03 Hct 35.3 % (36.0-45.0) L 09/10/19 04:03 Plt Count 733 K/uL (152-406) H 09/10/19 04:03 PT 13.4 SECONDS (9.2-12.8) H 09/05/19 07:45 INR 1.14 09/05/19 07:45 Sodium 138 mmol/L (136-145) 09/10/19 04:03 Potassium 3.5 mmol/L (3.5-5.1) 09/10/19 04:03 BUN 23 mg/dL (7-18) H 09/10/19 04:03 Creatinine 0.65 mg/dL (0.55-1.3) 09/10/19 04:03 Glucose 276 mg/dL (74-106) H 09/10/19 04:03 Magnesium Cancelled 09/10/19 05:00 Total Bilirubin 0.5 mg/dL (0.2-1.0) 09/05/19 07:45 AST 78 U/L (15-37) H 09/05/19 07:45 ALT 109 U/L (12-78) H 09/05/19 07:45 Alkaline Phosphatase 172 U/L (45-117) H D 09/05/19 07:45 Home Medications: Lisinopril/Hydrochlorothiazide [Lisinopril-Hctz 20-12.5 mg Tab] 1 tab PO BID 09/07/19 Metformin HCl [Glucophage] 1,000 mg PO BIDWM 09/07/19 Omeprazole 20 mg PO DAILY 09/07/19 Pravastatin Sodium 40 mg PO BEDTIME 09/07/19 Sitagliptin Phosphate [Januvia*] 50 mg PO DAILY 09/07/19 Ascorbic Acid [Vitamin C*] 500 mg PO DAILY #30 tablet 09/10/19 Benzonatate [Tessalon Perle*] 200 mg PO TID PRN #21 cap 09/10/19 Enoxaparin Sodium [Lovenox 60 MG INJ*] 60 mg SQ DAILY #6 ml 09/10/19 Melatonin [Melatonin*] 3 mg PO BEDTIME tablet 09/10/19 Thiamine HCl [Vitamin B-1*] 200 mg PO DAILY #30 tablet 09/10/19 Zinc Sulfate [Zinc Sulfate*] 220 mg PO DAILY #60 cap 09/10/19 predniSONE [Prednisone*] 20 mg PO BID #14 tab 09/10/19 New Medications: Enoxaparin Sodium [Lovenox 60 MG INJ*] 60 mg SQ DAILY #6 ml predniSONE [Prednisone*] 20 mg PO BID #14 tab Benzonatate [Tessalon Perle*] 200 mg PO TID PRN #21 cap PRN Reason: Cough Thiamine HCl [Vitamin B-1*] 200 mg PO DAILY #30 tablet Ascorbic Acid [Vitamin C*] 500 mg PO DAILY #30 tablet Zinc Sulfate [Zinc Sulfate*] 220 mg PO DAILY #60 cap
== END 2019-09-10 12:40 | disposition home or self-care (01) | DRG 177 ==
LOC: ER 06:23 → ERHOLD 11:18 → 3RD-ICU 11:45
PROVIDERS: ADMIT Family Medicine; ATTEND Internal Medicine
DX: U07.1 COVID-19 (principal); J12.89 Other viral pneumonia; J96.01 Acute respiratory failure with hypoxia; I10 Essential (primary) hypertension; E11.65 Type 2 diabetes mellitus with hyperglycemia; Z79.84 Long term (current) use of oral hypoglycemic drugs; Z79.899 Other long term (current) drug therapy
CPT/HCPCS: 36415; 71045; 71275; 80048; 80076; 81001; 81003; 81015; 82947; 83605; 83735; 83880; 84145; 84484; 85025; 85379; 85610; 86140; 87040; 87070; 87081; 87804; 93005; 94760; 96361; 96365; 96374; 96375; 99284; 99285; J0696; J1650; J1815; J2405; J2920; J2930; J7030; J7512; Q9967; U0001

== ENCOUNTER 2020-03-22 13:48 | Emergency (ER) | payer MEDICARE, OTHER ==
[2020-03-22] MEDS ORDERED: HYDROCODONE/APAP 5/325 MG TAB ONE (14:49)
--- NOTE | 2020-03-22 15:22 | RAD REPORT ---
EXAM DESCRIPTION: RAD - Knee Right 3 View - 03/22/2020 2:43 pm CLINICAL HISTORY: PAIN COMPARISON: No comparisons FINDINGS: No fracture or dislocation evident. No significant joint effusion. Followup MR imaging of the knee would be suggested if clinical symptoms persist or progress.
--- NOTE | 2020-03-22 15:45 | ER ---
Nurse's Notes [facility] Name: Tonja Washington Age: 64 yrs Sex: Female : 1955 Arrival Date: 03/22/2020 Time: 13:52 Bed 2 Private MD: Diagnosis: Strain of muscle, fascia and tendon of the posterior muscle group at thigh level, right thigh;Pain in right knee Presentation: 03/22 14:00 Chief complaint: Patient states: Has had R knee pain that radiates into R thigh for 1 ll1 week. Today, she was at the store and felt a sudden pop to R leg. Daughter caught her from falling to the ground. Unable to ambulate well since. Coronavirus screen: Client denies travel out of the [place] in the last 14 days. At this time, the client does not indicate any symptoms associated with coronavirus-19. Ebola Screen: Patient denies travel to an Ebola-affected area in the 21 days before illness onset. Initial Sepsis Screen: Does the patient meet any 2 criteria? No. Patient's initial sepsis screen is negative. Does the patient have a suspected source of infection? Yes: Bone or joint infection. Risk Assessment: Do you want to hurt yourself or someone else? Patient reports no desire to harm self or others. Onset of symptoms was March 16, 2020. 14:00 Method Of Arrival: Wheelchair ll1 14:00 Acuity: CARIDAD 3 ll1 Historical: - Allergies: 13:59 No Known Allergies; ll1 - PMHx: 13:59 Diabetes - NIDDM; Hyperlipidemia; Hypertension; ll1 - PSHx: 13:59 Appendectomy; backsx. L hip replacement.; ll1 - Immunization history:: Flu vaccine is up to date. - Social history:: Smoking status: Patient denies any tobacco usage or history of. Screenin:14 Abuse screen: Denies threats or abuse. Denies injuries from another. Nutritional ph screening: No deficits noted. Tuberculosis screening: No symptoms or risk factors identified. Fall Risk None identified. Assessment: 14:38 General: Appears in no apparent distress. comfortable, slender, well groomed, Behavior ph is calm, cooperative, appropriate for age. Pain: Complains of pain in right knee Pain radiates to right hamstring and right calf. Neuro: Level of Consciousness is awake, alert, obeys commands, Oriented to person, place, time, situation. Cardiovascular: Capillary refill < 3 seconds in bilateral fingers Patient's skin is warm and dry. Respiratory: Airway is patent Respiratory effort is even, unlabored, Respiratory pattern is regular, symmetrical. Derm: Skin is intact, is healthy with good turgor, Skin is pink, warm \T\ dry. Vital Signs: 14:00 BP 173 / 87; Pulse 81; Resp 16; Temp 97.8; Pulse Ox 100% ; Weight 78.47 kg; Height 5 ll1 ft. 9 in. (175.26 cm); Pain 02/16; 14:00 Body Mass Index 25.55 (78.47 kg, 175.26 cm) ll1 ED Course: 13:52 Patient arrived in ED. mr 14:02 Triage completed. ll1 14:02 Arm band placed on Patient placed in an exam room, on a stretcher. ll1 14:04 Gurjit Mckinney NP is PHCP. pm1 14:04 Kalpesh Padilla MD is Attending Physician. pm1 14:13 Aura Atwood RN is Primary Nurse. ph 14:14 Patient has correct armband on for positive identification. Bed in low position. Call ph light in reach. Side rails up X 1. Door closed. Noise minimized. 14:43 Knee Right 3 View XRAY In Process Unspecified. EDMS 16:09 No provider procedures requiring assistance completed. Patient did not have IV access sv during this emergency room visit. Administered Medications: 14:37 Drug: [place] 5 mg-325 mg 1 tabs Route: PO; ph 15:00 Follow up: Response: No adverse reaction; Pain is decreased ph Outcome: 15:45 Discharge ordered by . pm1 16:09 Discharged to home ambulatory, with family, with walker and knee immoblizer sv 16:09 Condition: stable 16:09 Discharge instructions given to patient, Instructed on discharge instructions, follow up and referral plans. no drinking with medication, no driving heavy equipment, medication usage, Demonstrated understanding of instructions, follow-up care, medications, Prescriptions given X 1. 16:09 Patient left the ED. sv Signatures: Dispatcher [employer] EDNY Kahty Nicolas RN RN sv Rivera, Mary mr Aura Atwood RN RN Gurjit Mckinney NP ZIPPER SETTER CHAINSTITCH pm1 Nickolas Rodriguez, RN RN ll1
--- NOTE | 2020-03-22 15:45 | EDPHYS ---
Physician Documentation [facility] Name: Tonja Washington Age: 64 yrs Sex: Female : 1955 Arrival Date: 03/22/2020 Time: 13:52 Bed 2 Private MD: JESSEE Physician Kalpesh Padilla HPI: 03/22 14:24 This 64 yrs old Female presents to ER via Wheelchair with complaints of Right pm1 Leg Pain, Knee Pain. 14:24 The patient presents with pain, that is acute. The complaints affect the posterior pm1 aspect of right knee. Context: The problem was sustained outdoors, resulted from an unknown cause, the patient is not able to bear weight, Problem is a result from a previous injury: No. Onset: The symptoms/episode began/occurred 3 day(s) ago. Modifying factors: the symptoms are aggravated by weight bearing. Associated signs and symptoms: Pertinent negatives calf tenderness, fever, numbness, swelling, tingling, weakness. Treatment prior to arrival includes: no previous treatment. The patient has not experienced similar symptoms in the past. Patient reports posterior right knee pain for the past 2-3 days. Today she went shopping and was putting her groceries into her trunk. She felt a pop behind her right knee and the pain ran up her right hamstring. Pain is only present behind her right knee with standing and bearing weight on her right leg. Historical: - Allergies: 13:59 No Known Allergies; ll1 - PMHx: 13:59 Diabetes - NIDDM; Hyperlipidemia; Hypertension; ll1 - PSHx: 13:59 Appendectomy; backsx. L hip replacement.; ll1 - Immunization history:: Flu vaccine is up to date. - Social history:: Smoking status: Patient denies any tobacco usage or history of. ROS: 14:24 Constitutional: Negative for fever, chills, and weight loss, Cardiovascular: Negative pm1 for chest pain, palpitations, and edema, Respiratory: Negative for shortness of breath, cough, wheezing, and pleuritic chest pain, Abdomen/GI: Negative for abdominal pain, nausea, vomiting, diarrhea, and constipation. 14:24 Skin: Negative for injury, rash, and discoloration, Neuro: Negative for headache, weakness, numbness, tingling, and seizure. 14:24 MS/extremity: Positive for pain, of the right leg and posterior aspect of right knee and right hamstring, Negative for decreased range of motion, deformity. Exam: 14:24 Constitutional: This is a well developed, well nourished patient who is awake, alert, pm1 and in no acute distress. Head/Face: Normocephalic, atraumatic. 14:24 Skin: Warm, dry with normal turgor. Normal color with no rashes, no lesions, and no evidence of cellulitis. 14:24 Cardiovascular: Exam negative for acute changes, Rate: normal, Rhythm: regular, Pulses: no pulse deficits are appreciated, Edema: is not appreciated to bilateral lower extremities. 14:24 Respiratory: Exam negative for acute changes, respiratory distress, shortness of breath. 14:24 Abdomen/GI: Exam negative for acute changes, Inspection: abdomen appears normal, Palpation: abdomen is soft and non-tender, in all quadrants. 14:24 Back: Exam negative for acute changes, pain, is absent, vertebral tenderness, is not appreciated. 14:24 Musculoskeletal/extremity: Extremities: grossly normal except: tenderness with palpation just above posterior aspect of right knee. Pain also present with flexing right hip and right knee. Negative drawer test, varus and valgus test, Jenn test, Circulation is intact in all extremities. the right leg Sensation intact. 14:24 Neuro: Exam negative for acute changes, Orientation: is normal, Mentation: is normal, Motor: is normal, moves all fours. Vital Signs: 14:00 BP 173 / 87; Pulse 81; Resp 16; Temp 97.8; Pulse Ox 100% ; Weight 78.47 kg; Height 5 ll1 ft. 9 in. (175.26 cm); Pain 1/10; 14:00 Body Mass Index 25.55 (78.47 kg, 175.26 cm) ll1 MDM: 14:06 Patient medically screened. pm1 15:43 Data reviewed: vital signs. Data interpreted: Pulse oximetry: on room air is 100 %. pm1 Interpretation: normal. Counseling: I had a detailed discussion with the patient and/or guardian regarding: the historical points, exam findings, and any diagnostic results supporting the discharge/admit diagnosis, radiology results, the need for outpatient follow up, for definitive care, a orthopedic surgeon, MRI as needed, to return to the emergency department if symptoms worsen or persist or if there are any questions or concerns that arise at home. 03/22 14:21 Order name: Knee Right 3 View XRAY; Complete Time: 15:25 pm1 03/22 15:21 Order name: Knee Immobilizer; Complete Time: 18:01 pm1 03/22 15:25 Order name: Misc. Order: walker; Complete Time: 18:01 pm1 Administered Medications: 14:37 Drug: [place] 5 mg-325 mg 1 tabs Route: PO; ph 15:00 Follow up: Response: No adverse reaction; Pain is decreased ph Disposition: 03/23 14:42 Co-signature as Attending Physician, Kalpesh Padilla MD I agree with the assessment and philippe plan of care. Disposition: 03/22/20 15:45 Discharged to Home. Impression: Strain of muscle, fascia and tendon of the posterior muscle group at thigh level, right thigh, Pain in right knee. - Condition is Stable. - Discharge Instructions: Hamstring Strain, Knee Immobilizer, How to Use a Walker, Knee Pain. - Prescriptions for Tylenol- Codeine #3 300-30 mg Oral Tablet - take 2 tablets by ORAL route every 6 hours As needed; 20 tablet. - Medication Reconciliation Form, Thank You Letter, Antibiotic Education, Prescription Opioid Use form. - Follow up: Emergency Department; When: 2 - 3 days; Reason: Recheck today's complaints, Continuance of care, Re-evaluation by your physician. Follow up: Private Physician; When: 2 - 3 days; Reason: Recheck today's complaints, Continuance of care, Re-evaluation by your physician. - Problem is new. - Symptoms have improved. Signatures: Dispatcher [employer] Kathy Cervantes RN RN sv Anderson, Corey, MD MD cha Hall, Patricia, RN RN ph Gurjit Mckinney, METALLOGRAPHIC TECHNICIAN METALLOGRAPHIC TECHNICIAN pm1 Nickolas Rodriguez RN RN ll1 Corrections: (The following items were deleted from the chart) 03/22 16:09 15:45 03/22/2020 15:45 Discharged to Home. Impression: Strain of muscle, fascia and sv tendon of the posterior muscle group at thigh level, right thigh; Pain in right knee. Condition is Stable. Forms are Medication Reconciliation Form, Thank You Letter, Antibiotic Education, Prescription Opioid Use. Follow up: Emergency Department; When: 2 - 3 days; Reason: Recheck today's complaints, Continuance of care, Re-evaluation by your physician. Follow up: Private Physician; When: 2 - 3 days; Reason: Recheck today's complaints, Continuance of care, Re-evaluation by your physician. Problem is new. Symptoms have improved. pm1
[2020-03-22 16:14] VITALS: BP 173/87; TEMP 97.8; O2SAT 100
== END 2020-03-22 16:09 | disposition home or self-care (01) ==
LOC: ER 13:48
DX: S76.311A Strain of muscle, fascia and tendon of the posterior muscle group at thigh level, right thigh, initial encounter (principal); X58.XXXA Exposure to other specified factors, initial encounter; Y93.89 Activity, other specified; Y92.481 Parking lot as the place of occurrence of the external cause; I10 Essential (primary) hypertension
CPT/HCPCS: 99283

== ENCOUNTER 2022-09-08 22:25 | Emergency (ER) | payer OTHER ==
--- OUTSIDE RECORDS SUMMARY | 2022-09-08 22:29 | XMS REPORT | Continuity of Care Document ---
:1955 Author Organization [facility] t Address [address] [place] [address] [address] [place] [address] Care Team Providers Name Role Phone Jerardo Brown MD Primary Care Physician [phone] Estella Brandon Attending Clinician Unavailable Mayi Deo Attending Clinician Unavailable PATO NOVAK Attending Clinician Unavailable Vin FREEMAN, Vida Jaimes Attending Clinician Pato Novak MD Attending Clinician [phone] Doctor Unassigned, [place] Attending Clinician Unavailable Only, Adc Test Attending Clinician Unavailable Pob, [facility] Main Attending Clinician Unavailable PATO NOVAK Admitting Clinician Unavailable Pato Novak MD Admitting Clinician [phone] Payers Payer Name Policy Type Policy Number Effective Date Expiration Date Jil ramirezdonna JERRY/ROXANA [id number] 2020 MEDICARE ADVANTAGE 00:00:00 Problems Condition Condition Condition Status Onset Resolution Last Treating Co mments Source Name Details Category Date Date Treatment Clinician Date Complex Complex Disease Active Univers tear of tear of 4-21 ity of medial medial 00:00: [place] meniscus meniscus 00 Medica l of right of right Branch knee as knee as current current injury injury [id number] Uncontroll Problem Active Co mmon ed type 2 Spirit diabetes - [facility] mellitus [facility] complicati Medica l on, Center without long-term current use of insulin [id number] Insomnia, Problem Active Com mon unspecifie Spirit d type - [facility] [id number] Anxiety Problem Active [facility] - [facility] [id number] Dysarthria Problem Active Comm on Spirit - [facility] [id number] Allergic Problem Active Commo n rhinitis, Spirit unspecifie - [facility] d seasonalit [facility] y, Medical unspecifie Center d trigger [id number] Essential Problem Active Comm on hypertensi Spirit on [facility] [id number] Hypertrigl Problem Active Co mmon yceridemia [facility] [id number] Pain, Problem Active Commo n [id number] joint, [facility] foot, - [facility] right [facility] [id number] Gastroesop Problem Active Co mmon hageal [facility] reflux - [facility], [facility] Medica l not Center specified [id number] Plantar Problem Active Comm on [id number] fasciitis [facility] of right - [facility] foot [facility] [id number] Hyperlipid Problem Active Com mon emia, Spirit unspecifie - [facility] d hyperlipid [facility] emia [facility] [id number] Hypercalce Problem Active Com mon radha Spirit [facility] [id number] Leukocytos Problem Active Co mmon is, Spirit unspecifie - [facility] d type [facility] 7254622 Thrombocyt Problem Active Comm on osis [facility] [id number] Elevated Problem Active Comm on liver [facility] function - [facility] tests [facility] Allergies, Adverse Reactions, Alerts Allergy Allergy Status Severity Reaction(s) Onset Inactive Treating Comm ents Source Name Type Date Date Clinician NO KNOWN Drug Active Univers ALLERGIE Class ity of S [facility] [place] Family History Family Member Diagnosis Comments Start Date Stop Date Source Natural mother Diabetes [facility] Social History Social Habit Start Date Stop Date Quantity Comments Source Gender identity 2021-07-01 Identifies as Method ist 13:15:02 female gender Hospital (finding) Exposure to Not sure University of SARS-CoV-2 (event) [facility] [place] History of Tobacco [facility] - Use [facility] Sex Assigned At [facility] stacy - [facility] Sexual orientation Method [facility] Hospital History of Social 2022-06-22 2022-06-[address] function 00:00:00 00:00:00 Hospital Alcohol intake 2021-12-22 2021-12-22 Lifetime Jain 00:00:00 00:00:00 non-drinker Hospital (finding) Tobacco use and 2021-07-02 2021-07-02 Smokeless tobacco Me [facility]odist exposure 00:00:00 00:00:00 non-user Hospital Tobacco Comment 2021-07-02 2021-07-[address] 00:00:00 00:00:00 Hospital Smoking Status Start Date Stop Date Source Unknown if ever smoked [facility] Ex-smoker 2021-07-02 00:00:00 2021-07[facility]02 [facility] Medications Ordered Filled Start Stop Current Ordering Indication Dosage Frequency Signature Comments Components Source Medication Medication Date Date Medication? Clinician (SIG) Name Name Mobic 7.5 Mobic 7.5 2021- No 1{table QD Mobic 7.5 MG MG 06-29- t} MG 00:00: 00:00 00 :00 Mobic 7.5 Mobic 7.5 2021- No 1{table QD Mobic 7.5 MG MG 06-15-08 t} MG 00:00: 00:00 00 :00 pravastatin 2021-0 Yes Method i (PRAVACHOL) 3-10 st 40 mg 00:00: Hospita tablet 00 l lisinopriL Yes Methodi (PRINIVIL) 3-10 st 20 mg 00:00: Hospita tablet 00 l omeprazole 0 2022- No Method i (PriLOSEC) 3-10 - st 20 MG 00:00: 00:00 Hospita capsule 00 :00 l morpHINE Yes 2mg 2 mg, Slow Uni vers injection 2 4-21 IV Push, ity of mg 13:55: Q5MIN PRN, [place] 15 5 doses, Medical Starting Branch 05/28/20 at 0855, Until Discontinu ed, Routine, Pain (scale 4-6), PACU ondansetron Yes 4mg 4 mg, Slow Univers (ZOFRAN 05-28 IV Push, ity of (PF)) 13:55: PRN, 1 [place] injection 4 15 dose, Medical mg Starting Branch Tue05/28/20 at 0855, Until Discontinu ed, Routine, Nausea and Vomiting (N/V), PACU morpHINE 0 2020- No 2mg 2 mg, Slow Un ann-marie injection 2 05-28 IV Push, ity of mg 13:55: 17:32 Q5MIN PRN, [place] 15 :59 5 doses, Medical Starting Branch Tue05/28/20 at 0855, Until Tue05/28/20 at 1232, Routine, Pain (scale 4-6), PACU ondansetron 2020- No 4mg 4 mg, Slow Univers (ZOFRAN 05-28 IV Push, ity of (PF)) 13:55: 17:32 PRN, 1 [place] injection 4 15 :59 dose, Medical mg Starting Branch Tue05/28/20 at 0855, Until Tue05/28/20 at 1232, Routine, Nausea and Vomiting (N/V), PACU sodium 2020-0 Yes PRN, Univers chloride 05-28 Starting ity of 0.9 % 13:24: Tue [place] irrigation 00 05/28/20 at Med ical solution 0824, Branch Until Discontinu ed, Intra-op sodium 2020-2020- No PRN, Univers chloride 05-28 Starting ity of 0.9 % 13:24: 17:32 Wed [place] irrigation 00 :59 05/28/20 at Med ical solution 0824, Branch Until Tue05/28/20 at 1232, Intra-op lactated 2020-2020- No 1000mL at 42 Unive rs ringers IV 05-28 04-21 mL/hr, ity of infusion 12:15: 12:16 1,000 mL, Alejandro as 1,000 mL 00 :00 IV Medical Infusion, Branch ONCE, 1 dose, Tue05/28/20 at 0715, Routine, DSU Pre-op lactated 2020-2020- No 1000mL at 42 Unive rs ringers IV 05-28-21 mL/hr, ity of infusion 12:15: 12:16 1,000 mL, Aeljandro as 1,000 mL 00 :00 IV Medical Infusion, Branch ONCE, 1 dose, Tue05/28/20 at 0715, Routine, DSU Pre-op ceFAZolin Yes 1000mg 1,000 mg, U nivers (ANCEF) 4 IV ity of 1,000 mg in 12:06: [place], [place] NaCl 0.9% 19 O.R. Medical (NS) 50 mL HOLDING Branch MINI-BAG ONCE, 1 dose, Starting Tue05/28/20 at 0706, Until Discontinu ed, 50 mL, DSU Pre-op
Reason for Anti-Infec tive: Surgical Prophylaxi s
Surgi pierre Prophylaxi s: Orthopaedi c
Durat ion of therapy: within 24 hours of surgery ceFAZolin No 1000mg 1,000 mg, Univers (ANCEF) 05-28 04-21 IV ity of 1,000 mg in 12:06: 17:32 [place], [place] NaCl 0.9% 19 :59 O.R. Medical (NS) 50 mL HOLDING Branch MINI-BAG ONCE, 1 dose, Starting Tue05/28/20 at 0706, Until Tue05/28/20 at 1232, 50 mL, DSU Pre-op
Reason for Anti-Infec tive: Surgical Prophylaxi s
Surgi pierre Prophylaxi s: Orthopaedi c
Durat ion of therapy: within 24 hours of surgery zolpidem 10 Yes Univer s mg tablet 3-31 ity of 00:00: [place] [facility] Branch zolpidem 10 0 Yes Univer s mg tablet 3-31 ity of 00:00: [place] [facility] Branch zolpidem 10 0 Yes Univer s mg tablet 3-31 ity of 00:00: [place] [facility] lisinopriL Yes 12.5mg Take 12.5 Univers 10 mg 3-15 mg by ity of tablet 00:00: mouth 2 (two) Medical times Branch daily. metFORMIN Yes Univers 1,000 mg 3-15 ity of tablet 00:00: [address] Branch omeprazole 2021-0 Yes Univers 20 mg 3-15 ity of capsule 00:00: [address] pravastatin 0 Yes Univer s 40 mg 3-15 ity of tablet 00:00: [address] lisinopriL Yes 12.5mg Take 12.5 Univers 10 mg 3-15 mg by ity of tablet 00:00: mouth [address] [place] [address] (two) Medical times [place] daily. metFORMIN Yes Univers 1,000 mg 3-15 ity of tablet 00:00: [address] omeprazole 0 Yes Univers 20 mg 3-15 ity of capsule 00:00: [address] pravastatin Yes Univer s 40 mg 3-15 ity of tablet 00:00: [address] lisinopriL Yes 12.5mg Take 12.5 Univers 10 mg 3-15 mg by ity of tablet 00:00: mouth 2 [place] [address] (two) Medical times [place] daily. metFORMIN Yes Univers 1,000 mg 3-15 ity of tablet 00:00: [address] omeprazole Yes Univers 20 mg 3-15 ity of capsule 00:00: [address] pravastatin Yes Univer s 40 mg 3-15 ity of tablet 00:00: [address] metFORMIN 2019-0 Yes 1000mg 1 tablet. M ethodi (GLUCOPHAGE 7-31 st ) 1,000 mg 00:00: Hospita tablet 00 l Solumedrol Solumedrol No C ommon 125mg/2ml 125mg/2ml 16 Spiri t 00:00: - [facility] Solumedrol Solumedrol No C ommon 125mg/2ml 125mg/2ml 916 Spiri t 00:00: - [facility]I 00 [facility] Lisinopril Lisinopril Yes Lalo 1 tablet Common [place] [facility] - [facility] Januvia Januvia Yes Lalo 1 tablet Com mon [place] [facility] - [facility] Mupirocin Mupirocin Yes Lalo 1 Com mon [place] applicatio Spirit n to - [facility]I affected [facility] Trazodone Trazodone Yes Lalo 1 tablet Common HCl HCl [place] at bedtime [facility] as needed [facility] Ambien Ambien Yes Lalo 1 tablet Commo n [place] at bedtime [facility] as needed - [facility] for sleep [facility] Fish Oil Fish Oil Yes Lalo 1 capsule Common [place] (otc) [facility] Metformin Metformin Yes Lalo 1 tablet Common HCl HCl [place] with meals [facility] Mobic Mobic Yes Lalo 1 tablet Common Patino [facility] Belsomra Belsomra Yes Lalo 1 tablet C ommon [place] at bedtime [facility] as needed [facility] Hydrochloro Hydrochloro Yes Lalo 1 tablet Common thiazide thiazide [place] in the Spir it morning [facility] amitriptyli amitriptyli Yes [place]alo one tab Common ne ne [place]ino [facility] Pravastatin Pravastatin Yes Lalo 1 tablet Common Sodium Sodium [place] in the [facility] evening [facility] Zestoretic Zestoretic Yes Lalo 1 tablet Common Patino [facility] Omeprazole Omeprazole Yes Lalo 1 capsule Common Patino [facility] Alprazolam Alprazolam Yes Lalo 1 tablet Common [place] [facility] ALPRAZolam ALPRAZolam No 1{table BID ALPRAZolam 0.5 MG 0.5 MG t} 0.5 MG Mupirocin 2 Mupirocin 2 No 1{appli TID Mupirocin % % cation_ 2 % to_affe cted_ar ea} Januvia 50 Januvia 50 No 1{table Januvia 50 MG MG t} MG Mobic 7.5 Mobic 7.5 No 1{table QD Mobic 7.5 MG MG t} MG Ambien 10 Ambien 10 No QD Ambien 10 MG MG MG traZODone traZODone No 1{table QD traZODone HCl 50 MG HCl 50 MG t_at_be HCl 50 MG dtime_a s_neede d} Lisinopril Lisinopril No 1{table Lisinopril 10 MG 10 MG t} 10 MG Zestoretic Zestoretic No 1{table BID Zestoretic 20-12.5 MG 20-12.5 MG t} 20-12.5 MG Belsomra 15 Belsomra 15 No 1{table QD Belsomra MG MG t_at_be 15 MG dtime_a s_neede d} Fish Oil Fish Oil No Fish Oil 1200 MG 1200 MG 1200 MG Omeprazole Omeprazole No 1{capsu QD Omeprazole 40 MG 40 MG le} 40 MG hydroCHLORO hydroCHLORO No 1{table QD hydroCHLOR thiazide 25 thiazide 25 t_in_th Othiazide MG MG e_morni 25 MG ng} Pravastatin Pravastatin No 1{table QD Pravastati Sodium 40 Sodium 40 t_in_th n Sodium MG MG e_eveni 40 MG ng} Lisinopril Lisinopril No 1{table QD Lisinopril 20 MG 20 MG t} 20 MG amitriptyli amitriptyli No amitriptyl ne 25 mg ne 25 mg ine 25 mg metFORMIN metFORMIN No 1{table BID metFORMIN HCl 1000 MG HCl 1000 MG t_with_ HCl 1000 meals} MG Omeprazole Omeprazole No 1{capsu QD Omeprazole 40 MG 40 MG le} 40 MG amitriptyli amitriptyli No amitriptyl ne 25 mg ne 25 mg ine 25 mg metFORMIN metFORMIN No 1{table BID metFORMIN HCl 1000 MG HCl 1000 MG t_with_ HCl 1000 meals} MG Belsomra 15 Belsomra 15 No 1{table QD Belsomra MG MG t_at_be 15 MG dtime_a s_neede d} Mobic 7.5 Mobic 7.5 No 1{table QD Mobic 7.5 MG MG t} MG Lisinopril Lisinopril No 1{table QD Lisinopril 20 MG 20 MG t} 20 MG Lisinopril Lisinopril No 1{table Lisinopril 10 MG 10 MG t} 10 MG traZODone traZODone No 1{table QD traZODone HCl 50 MG HCl 50 MG t_at_be HCl 50 MG dtime_a s_neede d} Mobic 7.5 Mobic 7.5 No 1{table QD Mobic 7.5 MG MG t} MG hydroCHLORO hydroCHLORO No 1{table QD hydroCHLOR thiazide 25 thiazide 25 t_in_th Othiazide MG MG e_morni 25 MG ng} Pravastatin Pravastatin No 1{table QD Pravastati Sodium 40 Sodium 40 t_in_th n Sodium MG MG e_eveni 40 MG ng} Mupirocin 2 Mupirocin 2 No 1{appli TID Mupirocin % % cation_ 2 % to_affe cted_ar ea} Fish Oil Fish Oil No Fish Oil 1200 MG 1200 MG 1200 MG Ambien 10 Ambien 10 No QD Ambien 10 MG MG MG Januvia 50 Januvia 50 No 1{table Januvia 50 MG MG t} MG ALPRAZolam ALPRAZolam No 1{table BID ALPRAZolam 0.5 MG 0.5 MG t} 0.5 MG Zestoretic Zestoretic No 1{table BID Zestoretic 20-12.5 MG 20-12.5 MG t} 20-12.5 MG Immunizations Ordered Immunization Filled Immunization Date Status Commen ts Source Name Name Prevnar 13 (PCV13) Prevnar 13 (PCV13) 2019-12-11 Completed [facility] 09:09:00 - [facility] Prevnar 13 (PCV13) Prevnar 13 (PCV13) 2019-12-11 Completed [facility] 09:09:00 [facility] Adacel (Tdap) Adacel (Tdap) 2019-12-11 Completed [facility] pirit 09:07:00 [facility] Adacel (Tdap) Adacel (Tdap) 2019-12-11 Completed Common S pirit 09:07:00 - [facility] Flucelvax - Flucelvax - 2017-12-12 Completed [facility] Spiri t multidose vial multidose vial 09:03:00 - [facility] Flucelvax - Flucelvax - 2017-12-12 Completed [facility] t multidose vial multidose vial 09:03:00 [facility] Vital Signs Vital Name Observation Time Observation Value Comments Source height 2021-06-29 09:45:00 69.00 [in_i] [facility] weight 2021-06-29 09:45:00 170 [lb_av] [facility] temperature 2021-06-29 09:45:00 97.8 [degF] [facility] bmi 2021-06-29 09:45:00 25.1 kg/m2 Common S pirit - [facility] blood pressure 2021-06-29 09:45:00 122 mm[Hg] [facility] - systolic [facility] blood pressure 2021-06-29 09:45:00 70 mm[Hg] [facility] - diastolic [facility] height 2021-06-15 09:30:00 69.00 [in_i] [facility] weight 2021-06-15 09:30:00 170 [lb_av] Common S [facility] bmi 2021-06-15 09:30:00 25.1 kg/m2 [facility] blood pressure 2021-06-15 09:30:00 122 mm[Hg] [facility] - systolic [facility] blood pressure 2021-06-15 09:30:00 70 mm[Hg] [facility] - diastolic [facility] Systolic blood 2020-05-28 14:32:00 145 mm[Hg] Univer sity of [facility] Diastolic blood 2020-05-28 14:32:00 73 mm[Hg] [facility] 2020-05-28 14:32:00 74 /min [facility] Respiratory rate 2020-05-28 14:32:00 18 /min General acute hospital Oxygen saturation in 2020-05-28 14:32:00 95 /min [facility] Arterial blood by [facility] Pulse oximetry Branch Body temperature 2020-05-28 13:57:00 36.56 [facility] height 2020-05-28 11:30:00 177.8 cm [facility] Body weight 2020-05-28 11:30:00 78.019 kg [facility] BMI 2020-05-28 11:30:00 24.68 kg/m2 [facility] Systolic blood 2020-05-28 11:30:00 156 mm[Hg] Univer sity of pressure [facility] Diastolic blood 2020-05-28 11:30:00 79 mm[Hg] Unive rsity of pressure [facility] [place] Heart rate 2020-05-28 11:30:00 74 /min [facility] Body temperature 2020-05-28 11:30:00 36.61 [facility] Respiratory rate 2020-05-28 11:30:00 20 /min [facility] Body height 2020-05-28 11:30:00 177.8 cm [facility] Body weight 2020-05-28 11:30:00 78.019 kg [facility] BMI 2020-05-28 11:30:00 24.68 kg/m2 [facility] Oxygen saturation in 2020-05-28 11:30:00 100 /min [facility] blood by [facility] Pulse oximetry Branch Body height 2021-12-22 16:53:00 176.5 cm [facility] Body weight 2021-12-22 16:53:00 76.658 kg [facility] BMI 2021-12-22 16:53:00 24.60 kg/m2 [facility] Procedures Procedure Date / Time Performing Clinician Source Performed MENISCECTOMY 2020-05-28 12:26:[address] [facility] POCT GLUCOSE (AUTOMATED) 2020-05-28 11:55:00 Pato Novak U [facility] DAY SURGERY - ADC 2020-05-28 05:01:00 Doctor Reinoso [facility] Name Medical [place] XR CHEST 2 VW 2020-05-26 15:14:[address] [facility] CONSENT/REFUSAL FOR 2020-05-26 14:45:08 [facility] [facility] DIAGNOSIS AND TREATMENT [place] [facility] CONSENT/REFUSAL FOR 2020-05-26 14:45:08 Julisa Amato [facility] DIAGNOSIS AND TREATMENT [place] [facility] ASSIGNMENT OF BENEFITS 2020-05-26 14:44:49 Doctor Kemar [facility] [place] [facility] ASSIGNMENT OF BENEFITS 2020-05-26 14:44:49 Doctor Unassigned, [facility] [place] [facility] PATIENT FINANCIAL 2020-05-26 14:44:28 Doctor Unassigned, [facility] [place] POLICY [place] [facility] PATIENT FINANCIAL 2020-05-26 14:44:28 Doctor Unassigned, [facility] POLICY [place] [facility] NOTICE OF BILLING 2020-05-26 14:44:00 Doctor Unassigned, [facility] FOR MEDICARE [place] [facility] PATIENTS NOTICE OF BILLING 2020-05-26 14:44:00 Doctor Unassigned, [facility] FOR MEDICARE [place] [facility] PATIENTS NO SHOW OR MISSED 2020-05-26 14:43:31 Doctor Unassigned, [facility] APPOINTMENT POLICY [place] [facility] h ACKNOWLEDGEMENT NO SHOW OR MISSED 2020-05-26 14:43:31 Doctor Unassigned, [facility] APPOINTMENT POLICY [place] [facility] ACKNOWLEDGEMENT NOTICE OF PRIVACY 2020-05-26 14:43:04 Doctor Unassigned, [facility] [place] [facility] NOTICE OF PRIVACY 2020-05-26 14:43:04 Doctor Unassigned, [facility] [place] [facility] CONSENT/REFUSAL FOR 2020-05-26 14:42:45 Doctor Unassigned, [facility] DIAGNOSIS AND TREATMENT [place] [facility] CONSENT/REFUSAL FOR 2020-05-26 14:42:45 Doctor Unassigned, [facility] DIAGNOSIS AND TREATMENT [place] [facility] ASSIGNMENT OF BENEFITS 2020-05-26 14:42:27 [facility] [place] [facility] ASSIGNMENT OF BENEFITS 2020-05-26 14:42:27 Doctor Unassigned, [facility] [place] [facility] DSU PRE-OP 2020-05-26 05:01:00 Doctor Unassigned, [facility] [place] [facility] DSU PRE-OP 2020-05-26 05:01:00 Doctor Unassigned, [facility] [place] [facility] DSU PRE-OP 2020-05-23 05:01:00 Doctor Unassigned, [facility] [place] [facility] DSU PRE-OP 2020-05-23 05:01:00 Doctor Unassigned, [facility] Name Medical Branch DSU PRE-OP 2020-05-21 05:01:00 Doctor Unassigned, [facility] Name Medical Branch DSU PRE-OP 2020-05-21 05:01:00 Doctor Unassigned, [facility] Name Medical Branch Plan of Care Planned Activity Planned Date Details Comments Source Future Scheduled 2022-08-12 Screening for [facility] Test 15:02:28 malignant neoplasm of colon (procedure) [code = 802273112] Future Scheduled 2022-08-12 Screening for [facility] Test 15:02:28 malignant neoplasm of colon (procedure) [code = 171565925] Future Scheduled 2022-08-12 Screening for [facility] Test 15:02:28 malignant neoplasm of colon (procedure) [code = 438822521] Future Scheduled 2022-08-12 COVID-19 VACCINE (#1) [facility] Test 15:02:28 [code = COVID-19 VACCINE (#1)] Future Scheduled 2022-08-12 Hepatitis C screening [facility] Test 15:02:28 (procedure) [code = 292629784] Future Scheduled 2022-08-12 BREAST CANCER [facility] Test 15:02:28 SCREENING [code = BREAST CANCER SCREENING] Future Scheduled 2022-08-12 Screening for [facility] Test 15:02:28 malignant neoplasm of colon (procedure) [code = 760967063] Future Scheduled 2022-08-12 Screening for [facility] Test 15:02:28 malignant neoplasm of colon (procedure) [code = 411093877] Future Scheduled 2022-08-12 [facility]INGLES [facility]INES ([facility] 15:02:28 of 2) [code = SHINGLES VACCINES (1 of 2)] Future Scheduled 2022-08-12 65+ [facility]OCOCCAL [facility] Test 15:02:28 VACCINE (2 - PPSV23 if available, else PCV20) [code = 65+ PNEUMOCOCCAL VACCINE (2 - PPSV23 if available, else PCV20)] Future Scheduled 2022-08-12 INFLUENZA VACCINE Method [facility] Test 15:02:28 [code = INFLUENZA VACCINE] Encounters Start End Encounter Admission Attending Care Care Encounter Source Date/Time Date/Time Type Type Clinicians Facility Department ID 2021-06-11 Outpatient Brandon, Na STLMLC STLMLC [id number] Common 08:19:00 [facility] 2021-03-04 Outpatient Brandon, Na STLMLC STLMLC [id number] 2 Common 12:37:29 [facility] 2021-03-04 Outpatient Brandon, Na STLMLC STLMLC [id number] 2 Common 12:36:36 [facility] 2021-03-04 Outpatient Brandon, Na STLMLC STLMLC [id number] 2 Common 12:08:44 [id number] [facility] 2021-03-04 Outpatient Brandon, Na STLMLC STLMLC [id number] 2 Common 12:01:55 [id number] [facility] 2021-03-04 Outpatient Brandon, Na STLMLC STLMLC [id number] 2 Common 12:01:21 [id number] [facility] 2021-03-04 Outpatient Brandon, Na STLMLC STLMLC [id number] 2 Common 12:01:01 [id number] [facility] 2021-03-04 Outpatient STLMLC STLMLC [id number] Common 11:58:51 [id number] [facility] 2021-03-04 Outpatient Millender, STLMLC STLMLC [id number] Common 11:58:38 Mayi [id number] [facility] 2021-03-04 Outpatient Millender, STLMLC STLMLC [id number] Common 11:50:17 Mayi [id number] [facility] 2021-03-04 Outpatient Millender, STLMLC STLMLC [id number] Common 11:32:30 Mayi [id number] [facility] 2021-03-04 Outpatient Millender, STLMLC STLMLC [id number] Common 11:20:54 Mayi [id number] [facility] 2020-12-07 Outpatient R [facility] [id number] Univers 13:44:17 [facility] 2022-08-12 2022-08-12 Procedure Thekdi, [id number] Methodi 14:40:00 15:14:46 visit Vida [id number] [place] [id number] Hospit a .[id number] l .8 2022-08-12 2022-08-12 Outpatient THEKDI, [facility] [id number] [address] [place] 00:00:00 00:00:[address]IDA [address] 2022-06-17 2022-06-17 Travel [id number] Methodi 00:00:00 00:00:00 [address] 3.430.2.7 0.2.7.3.698 Ho spita .3.219551 084.8 l .8 2022-03-09 2022-03-09 Procedure Thekdi, 1.2.840.1 [id number] 2099 [id number] Methodi 10:20:00 13:07:21 visit Vida 83475.1.[address] [place] 3.430.2.7 Hospit a .3.733972 l .8 2022-03-09 2022-03-09 Travel 1.2.840.1 1.2.185.305 1961 [id number] Methodi 00:00:00 00:00:[address] 3.430.2.7 0.2.7.3.698 Ho spita .3.969720 084.8 l .8 2022-03-09 2022-03-09 Outpatient THEI, [facility] [id number] [address] [place] 00:00:00 00:00:00 VIDA [address] 2021-12-22 2021-12-22 Procedure Thekdi, 1.2.840.1 [id number] 2099 [id number] Methodi 11:20:00 12:29:04 visit Vida 22286.1.[address] Theodore 3.430.2.7 Hospit a .3.382871 l .8 2021-12-22 2021-12-22 Travel 1.2.840.1 1.2.297.124 3075 [id number] Methodi 00:00:00 00:00:[address] 3.430.2.7 0.2.7.3.698 Ho spita .3.971692 084.8 l .8 2021-12-22 2021-12-22 [facility] THEKDI, [facility] [id number] 9[address] [place] 00:00:00 00:00:00 VIDA [address] 2021-12-15 2021-12-15 Travel 1.2.840.1 1.2.127.153 6459 [id number] Methodi 00:00:00 00:00:[address] 3.430.2.7 0.2.7.3.698 Ho spita .3.669960 084.8 l .8 2021-12-10 2021-12-10 Telephone Thekdi, 1.2.840.1 [id number] 2099 [id number] Methodi 00:00:00 00:00:[address] [place] 3.430.2.7 Hospit a .3.147503 l .8 2021-12-10 2021-12-10 Travel 1.2.840.1 1.2.876.428 6191 [id number] Methodi 00:00:00 00:00:[address] 3.430.2.7 0.2.7.3.698 Ho spita .3.251729 084.8 l .8 2021-12-09 2021-12-09 Telephone Thekdi, 1.2.840.1 [id number] 2099 825781 Methodi 00:00:00 00:00:[address] [place] 3.430.2.7 Hospit a .3.016158 l .8 2021-10-09 2021-10-09 Procedure Thejyoti, 1.2.840.1 [id number] 2100 690055 Methodi 14:40:00 16:19:00 visit Vida 16538.1.[address] Theodore 3.430.2.7 Hospit a .3.406564 l .8 2021-10-09 2021-10-09 Travel 1.2.840.1 1.2.882.781 6095 [id number] Methodi 00:00:00 00:00:[address] 3.430.2.7 0.2.7.3.698 Ho spita .3.565731 084.8 l .8 2021-10-09 2021-10-09 Outpatient [facility], [facility] [id number] 0[address] [place] 00:00:00 00:00:00 VIDA 429 Method i 2021-07-16 2021-07-16 Outpatient [facility] [id number] 021 [place] 00:00:00 00:00:00 VIDA 220 Method i 2021-07-02 2021-07-02 Outpatient [facility] [id number] 0[address] [place] 00:00:00 00:00:00 790 Method i 2021-07-02 2021-07-02 Outpatient [facility], [facility] [id number] 0[address] [place] 00:00:00 00:00:00 VIDA 791 Method i 2021-06-29 2021-06-29 OFFICE STLMLC STLMLC [id number] Co m[place] 00:00:00 00:00:00 VISIT EST Spir it PT LEVEL 3 - [facility] 2021-06-15 2021-06-15 OFFICE STLMLC STLMLC [id number] Co mmon 00:00:00 00:00:00 VISIT NEW Spir it PT LEVEL 3 - [facility] 2020-05-28 2020-05-28 [facility] 1.2.840.114 [id number] [facility] 06:29:00 10:05:00 Encounter Pato Hui 350.1.13.10 [place] [id number] [facility] [address] 2020-05-28 2020-05-28 [facility] [address] 1.2.840.114 [id number] [facility] 07:30:00 08:51:00 Pato Balbir Korina 350.1.13.10 [place] [id number] [facility] [address] 2020-05-28 2020-05-28 Orders Doctor HANNAH 1.2.840.114 [id number] Univers 00:00:00 00:00:00 Only Unassigned, GRANT 350.1.13.10 ity of [place] [facility] 4.2.7.2.686 Alejandro as [id number] [facility] [address] 2020-05-26 2020-05-26 Laboratory Only, Adc Test [facility] 1.2.840. 114 [id number] Univers 09:55:26 10:10:26 Only Scarlet Patoilda Hui 350.1. 13.10 [facility] [place] 4.2.7.2.686 [facility] [place] [id number] [facility] [address] 2020-05-26 2020-05-26 Machine C[place]er [place], Adc Lab Main [facility] 1.2.8 40.114 [id number] Univers 09:54:45 10:09:45 Visit Partha Novakilda Hui 350.1. 13.10 [place].2.[place] [id number] [facility] [address] [facility] 2020-05-26 2020-05-26 [facility] 1.2.840.114 [id number] Univers 09:45:00 09:51:00 Encounter Pato Balbir Hui 350.1.13.10 [place] 4.2.7.2.686 [place] [facility] [id number] [facility] [address] 2020-05-26 2020-05-26 [facility] [id number] Univers 00:00:00 00:00:00 PATO sood of [facility] [place] 2020-01-16 2020-01-16 Outpatient STLMLC STLMLC [id number] Common 00:00:00 00:00:00 [facility] 2020-01-08 2020-01-08 Outpatient STLMLC STLMLC [id number] Common 00:00:00 00:00:00 [facility] 2020-01-07 2020-01-07 Outpatient STLMLC STLMLC [id number] Common 00:00:00 00:00:00 [facility] 2019-12-11 2019-12-11 Outpatient STLMLC STLMLC [id number] Common 00:00:00 00:00:00 [facility] 2019-11-07 2019-11-07 Outpatient STLMLC STLMLC [id number] Common 00:00:00 00:00:00 [facility] 2019-09-13 2019-09-13 [facility] [id number] Common 14:25:00 14:25:[address] [facility] 2019-09-13 2019-09-13 Outpatient [facility]PFEIL [facility] 00:00:00 00:00:00 -[id number] 3 2019-09-04 2019-09-04 [facility] [id number] Common 10:38:00 10:38:[address] [facility] 2019-08-30 2019-08-30 [facility] [id number] Common 08:45:00 08:45:[address] [facility] 2019-08-29 2019-08-29 Out[facility] [id number] Common 08:41:00 08:41:[address] [address] [facility] 2019-06-18 2019-06-18 Out[facility] [id number] Common 08:57:00 08:57:[address] [address] [facility] 2019-06-14 2019-06-14 Out[facility] [id number] Common 15:00:00 15:00:[address] [facility] 2019-06-12 2019-06-12 [facility] [id number] Common 16:49:00 16:49:[address] [facility] 2019-05-30 2019-05-30 [facility] [id number] Common 09:25:00 09:25:[address] [facility] [address] [facility] 2019-05-25 2019-05-25 [facility] [id number] Common 14:31:00 14:31:[address] [facility] [address] [facility] 2019-05-24 2019-05-24 [facility] [id number] Common 16:45:00 16:45:[address] [facility] 2019-04-25 2019-04-25 [facility] [id number] Common 08:37:00 08:37:[address] [facility] [address] [facility] 2018-11-17 2018-11-17 Out[facility] [id number] Common 10:13:00 10:13:[address] [facility] 2018-11-13 2018-11-13 Out[facility] [id number] Common 10:00:00 10:00:[address] [facility] [address] [facility] 2018-10-28 2018-10-28 Out[facility] [id number] Common 05:08:00 05:08:[address] [facility] [address] [facility] 2018-10-23 2018-10-23 Out[facility] [id number] Common 08:40:00 08:40:[address] [facility] Results Test Description Test Time Test Comments Results Result Comments Source POCT GLUCOSE (AUTOMATED) 2020-05-28 18:49:00 Test Item Value Reference Range Interpretation Comme nts POCT GLU (test code = [id number]) 153 mg/dL 70-110 H Lab Interpretation (test code = 02341-9) [facility] [id number] 16:02:58No acute cardiopulmonary disease. CHEST 2 VIEWS: HISTORY:Acute medial meniscus tear of right knee, initial encounter TECHNIQUE:: ?PA and lateral views of the chest are obtained. FINDINGS: The lungs areclear. The heart size and mediastinal silhouetteare normal. No pleural effusion or pneumothorax is seen. [facility], Radiant Results Inft User - 05/26/2020 11:04 AM CDTCHEST 2 VIEWS:HISTORY:Acute medial meniscus tear of right knee, initial encounterTECHNIQUE:: PA and lateral views of the chest are obtained.FINDINGS: The lungs are clear. The heart size and mediastinal silhouetteare normal. No pleural effusion or pneumothorax is seen.IMPRESSIONNo acute cardiopulmonary disease.[facility]
[2022-09-08] MEDS ORDERED: NA CHLORIDE 0.9% 1,000 ML ONE (23:23)
[2022-09-08] MEDS ORDERED: LORazepam 2 MG/ML VIAL ONE (23:23)
[2022-09-08 23:34] LABS: Absolute Lymphocytes (CBC) 1.3 K/uL (0.7-4.9); Hematocrit 41.1 % (36.0-45.0); Lymphocytes % 12.6 % (15.3-44.8); MCV 86.5 fL (80-100); MPV 8.6 fL (7.6-11.3); RBC Red Blood Cell Count 4.75 M/uL (3.86-4.86)
[2022-09-08 23:47] LABS: Bilirubin Total 0.3 mg/dL (0.2-1.0); Potassium 3.2 mEq/L (3.5-5.1); Protein, Total 7.4 g/dL (6.4-8.2); Troponin High Sensitivity 8.9 pg/mL (<58.9)
--- NOTE | 2022-09-09 00:40 | EDPHYS ---
Physician Documentation [facility] Name: Tonja Washington Age: 66 yrs Sex: Female : 1955 Arrival Date: 09/08/2022 Time: 22:25 Bed 2 Private MD: ED Physician Jerry Beltran HPI: 09/09 00:21 This 66 yrs old Female presents to ER via Wheelchair with complaints of Generalized rt weakness, shortness of breath. 00:21 Patient presents to the ED with generalized weakness, shortness of breath that occurred rt about 1 hour after taking 1 THC gummy. Patient denies chest pain. Denies other acute complaints at this time. Symptoms are moderate severity, no other aggravating or alleviating factors.. Historical: - Allergies: 09/08 22:41 No Known Allergies; iw - Home Meds: 22:41 metformin 1,000 mg Oral tablet 2 times per day [Active]; Lisinopril 12.5 BID Oral iw [Active]; aspirin 81 mg Oral capsule daily [Active]; - PMHx: 22:41 Diabetes - NIDDM; Hyperlipidemia; Hypertension; iw ROS: 09/09 00:21 Constitutional: Negative for fever, chills, and weight loss, Cardiovascular: Negative rt for chest pain, palpitations, and edema, Abdomen/GI: Negative for abdominal pain, nausea, vomiting, diarrhea, and constipation, MS/Extremity: Negative for injury and deformity, Skin: Negative for injury, rash, and discoloration, Psych: Negative for depression, anxiety, suicide ideation, homicidal ideation, and hallucinations. Respiratory: Positive for shortness of breath, Negative for cough. Neuro: Positive for weakness, Negative for loss of consciousness. Exam: 00:21 Constitutional: This is a well developed, well nourished patient who is awake, alert, rt and in no acute distress. Head/Face: Normocephalic, atraumatic. Chest/axilla: Normal chest wall appearance and motion. Nontender with no deformity. No lesions are appreciated. Cardiovascular: Regular rate and rhythm with a normal S1 and S2. No gallops, murmurs, or rubs. Normal PMI, no JVD. No pulse deficits. Respiratory: Lungs have equal breath sounds bilaterally, clear to auscultation and percussion. No rales, rhonchi or wheezes noted. No increased work of breathing, no retractions or nasal flaring. Abdomen/GI: Soft, non-tender, with normal bowel sounds. No distension or tympany. No guarding or rebound. No evidence of tenderness throughout. Skin: Warm, dry with normal turgor. Normal color with no rashes, no lesions, and no evidence of cellulitis. MS/ Extremity: Pulses equal, no cyanosis. Neurovascular intact. Full, normal range of motion. Neuro: Awake and alert, GCS 15, oriented to person, place, time, and situation. Cranial nerves II-XII grossly intact. Motor strength 5/5 in all extremities. Sensory grossly intact. Cerebellar exam normal. Normal gait. Psych: Awake, alert, with orientation to person, place and time. Behavior, mood, and affect are within normal limits. 00:21 ECG was reviewed by the Attending Physician. Vital Signs: 09/08 22:39 BP 202 / 85; Pulse 87; Resp 16; Temp 98.3; Pulse Ox 97% on R/A; Weight 78.02 kg; Height iw 5 ft. 9 in. ; 23:11 BP 166 / 80; Pulse 88; Resp 16; Pulse Ox 95% on R/A; rv1 23:39 BP 174 / 85; Pulse 89; Resp 18; Pulse Ox 99% on R/A; kd3 23:57 BP 156 / 72; Pulse 88; Resp 18; Pulse Ox 96% on R/A; kd3 09/09 00:47 BP 140 / 71; Pulse 88; Resp 15; Pulse Ox 97% on R/A; rv1 09/08 22:39 Body Mass Index 25.40 (78.02 kg, 175.26 cm) iw MDM: 09/08 22:37 Patient medically screened. rt 09/09 02:00 Differential Diagnosis Electrolyte disturbance, rhabdomyolysis, acute coronary rt syndrome, pneumonia, pneumothorax. Data reviewed: vital signs, nurses notes, lab test result(s), EKG, radiologic studies. Consideration of Admission/Observation Escalation of care including admission/observation considered. I considered the following discharge prescriptions or medication management in the emergency department Medications were administered in the Emergency Department. See MAR. Independent interpretation of the following test(s) in the Emergency Department X-Ray: My interpretation is No consolidation seen on interpretation of the x-ray images. Test considered but Not performed: CT: Low suspicion for pulmonary embolism, CT angiogram not indicated. Care significantly affected by the following chronic conditions: Diabetes, Hypertension. Counseling: I had a detailed discussion with the patient and/or guardian regarding: the historical points, exam findings, and any diagnostic results supporting the discharge/admit diagnosis, lab results, radiology results, the need for outpatient follow up. Response to treatment: the patient's symptoms have resolved after treatment. 09/08 22:48 Order name: CBC with Diff; Complete Time: 23:52 rt 09/08 22:48 Order name: CMP; Complete Time: 23:52 rt 09/08 22:48 Order name: Troponin High Sensitivity; Complete Time: 23:52 rt 09/08 22:48 Order name: CPK; Complete Time: 23:52 rt 09/08 23:52 Order name: Chest Single View XRAY rt 09/08 22:48 Order name: EKG; Complete Time: 22:49 rt 09/08 22:48 Order name: EKG - Nurse/Tech; Complete Time: 23:10 rt EC:21 Rate is 88 beats/min. Rhythm is regular, Normal Sinus Rhythm with No ectopy. QRS [place] rt is Normal. NV interval is normal. QRS interval is normal. QT interval is normal. No Q waves. Clinical impression: NSR w/ Non-specific ST/T Changes. Administered Medications: 09/08 23:25 Drug: NS 0.9% IV 1000 ml Route: IV; Rate: 1 bolus; Site: left forearm; kd3 09/09 00:50 Follow up: Response: No adverse reaction; IV Status: Completed infusion; IV Intake: ll3 1000ml 09/08 23:25 Drug: Ativan IVP 1 mg Route: IVP; Site: left forearm; kd3 09/09 00:50 Follow up: Response: No adverse reaction; Marked relief of symptoms ll3 Disposition Summary: 09/09/22 00:39 Discharge Ordered Location: Home rt Problem: new rt Symptoms: are resolved rt Condition: Stable rt Diagnosis - Dyspnea rt Followup: rt - With: Private Physician - When: 5 - 6 days - Reason: Discharge Instructions: - Discharge Summary Sheet rt - Shortness of Breath, Adult rt Forms: - Medication Reconciliation Form rt - Thank You Letter rt - Antibiotic Education rt - Prescription Opioid Use rt - Patient Portal Instructions rt Signatures: Dispatcher [employer] Elly Ferguson, RN RN iw Franny Ingram RN RN kd3 Jerry Beltran MD MD rt Ashleigh Saha RN ll3
--- NOTE | 2022-09-09 00:40 | ER ---
Nurse's Notes [facility] Name: Tonja Washington Age: 66 yrs Sex: Female : 1955 Arrival Date: 09/08/2022 Time: 22:25 Bed 2 Private MD: Diagnosis: Dyspnea Presentation: 09/08 22:39 Chief complaint: Patient's son or daughter states: pt has been under a lot of stress iw and her son gave her a CBD gummy , an hour after taking it she got SOB and felt weak all over, had numbness in her face and arms , she took the gummy at 1830. Coronavirus screen: At this time, the client does not indicate any symptoms associated with coronavirus-19. Ebola Screen: Patient negative for fever greater than or equal to 101.5 degrees Fahrenheit, and additional compatible Ebola Virus Disease symptoms Patient denies exposure to infectious person. Patient denies travel to an Ebola-affected area in the 21 days before illness onset. No symptoms or risks identified at this time. Initial Sepsis Screen: Does the patient meet any 2 criteria? No. Patient's initial sepsis screen is negative. Does the patient have a suspected source of infection? No. Patient's initial sepsis screen is negative. Risk Assessment: Do you want to hurt yourself or someone else? Patient reports no desire to harm self or others. Onset of symptoms was September 08, 2022. 22:39 Method Of Arrival: Wheelchair iw 22:39 Acuity: CARIDAD 3 iw Historical: - Allergies: 22:41 No Known Allergies; iw - Home Meds: 22:41 metformin 1,000 mg Oral tablet 2 times per day [Active]; Lisinopril 12.5 BID Oral iw [Active]; aspirin 81 mg Oral capsule daily [Active]; - PMHx: 22:41 Diabetes - NIDDM; Hyperlipidemia; Hypertension; iw Screenin/03 00:49 [facility] ED Fall Risk Assessment (Adult) History of falling in the last 3 months, ll3 including since admission No falls in past 3 months (0 pts) Confusion or Disorientation No (0 pts) Intoxicated or Sedated No (0 pts) Impaired Gait No (0 pts) Mobility Assist Device Used No (0 pt) Altered Elimination No (0 pt) Score/Fall Risk Level 0 - 2 = Low Risk Oriented to surroundings, Maintained a safe environment, Educated pt \T\ family on fall prevention, incl call for assistance when getting out of bed. Abuse screen: Denies threats or abuse. Denies injuries from another. Nutritional screening: No deficits noted. Tuberculosis screening: No symptoms or risk factors identified. Assessment: 09/08 23:25 General: Appears in no apparent distress. Behavior is calm, cooperative. Pain: Denies kd3 pain. Neuro: Level of Consciousness is awake, alert, obeys commands, Oriented to person, place, time, situation. Respiratory: Airway is patent Trachea midline Respiratory effort is even, unlabored, Respiratory pattern is regular, symmetrical. Vital Signs: 22:39 BP 202 / 85; Pulse 87; Resp 16; Temp 98.3; Pulse Ox 97% on R/A; Weight 78.02 kg; Height iw 5 ft. 9 in. ; 23:11 BP 166 / 80; Pulse 88; Resp 16; Pulse Ox 95% on R/A; rv1 23:39 BP 174 / 85; Pulse 89; Resp 18; Pulse Ox 99% on R/A; kd3 23:57 BP 156 / 72; Pulse 88; Resp 18; Pulse Ox 96% on R/A; kd3 09/09 00:47 BP 140 / 71; Pulse 88; Resp 15; Pulse Ox 97% on R/A; rv1 09/08 22:39 Body Mass Index 25.40 (78.02 kg, 175.26 cm) iw ED Course: 09/08 22:29 Patient arrived in ED. vc1 22:36 Jerry Beltran MD is Attending Physician. rt 22:41 Triage completed. iw 22:42 Arm band placed on. iw 22:56 Franny Ingram, AYDEN is Primary Nurse. kd3 23:05 Inserted saline lock: 22 gauge in left forearm, using aseptic technique. Blood kd3 collected. 23:10 Troponin High Sensitivity Sent. rv1 23:10 CMP Sent. rv1 23:10 CBC with Diff Sent. rv1 23:11 CPK Sent. rv1 09/09 00:16 Chest Single View XRAY In Process Unspecified. EDMS 00:49 Patient has correct armband on for positive identification. Bed in low position. Call ll3 light in reach. Side rails up X 1. Adult w/ patient. 00:49 No provider procedures requiring assistance completed. IV discontinued, intact, ll3 bleeding controlled, No redness/swelling at site. Pressure dressing applied. Administered Medications: 09/08 23:25 Drug: NS 0.9% IV 1000 ml Route: IV; Rate: 1 bolus; Site: left forearm; kd3 09/09 00:50 Follow up: Response: No adverse reaction; IV Status: Completed infusion; IV Intake: ll3 1000ml 09/08 23:25 Drug: Ativan IVP 1 mg Route: IVP; Site: left forearm; kd3 09/09 00:50 Follow up: Response: No adverse reaction; Marked relief of symptoms ll3 Medication: 00:50 VIS not applicable for this client. ll3 Intake: 00:50 IV: 1000ml; Total: 1000ml. ll3 Outcome: 00:39 Discharge ordered by . rt 00:49 Discharged to home ambulatory, with family. ll3 00:49 Condition: stable 00:49 Discharge instructions given to patient, family, Instructed on discharge instructions, follow up and referral plans. Demonstrated understanding of instructions, follow-up care. 00:51 Patient left the ED. ll3 Signatures: Dispatcher [employer] Elly Ferguson RN Ashleigh Rodríguez RN RN ll3 Franny Ingram RN RN kd3 Juana Real RN RN 1 Jerry Beltran MD MD rt Villegas, Rebecca 1
[2022-09-09 01:27] VITALS: TEMP 98.3
[2022-09-09 01:32] VITALS: BP 140/71; O2SAT 97
--- NOTE | 2022-09-09 11:22 | RAD REPORT ---
EXAM DESCRIPTION: RAD - Chest Single View - 09/09/2022 12:14 am CLINICAL HISTORY: 66 years, Female, DYSPNEA COMPARISON: None. FINDINGS: Single view of the chest was obtained portable. No prior films are available for compariso n. External EKG leads within the [id number] limits diagnosis. The cardiomediastinal silhouette dem onstrate to be unremarkable. The heart is not enlarged. The thoracic aorta is mildly tortuous. The pu lmonary vasculature is normal distribution. Costophrenic angles are sharp. No areas of consolidatio n or masses are seen. The rest of the soft tissue and bony structures demonstrate to be unremarkabl e. IMPRESSION: No acute cardiopulmonary disease seen. Electronically signed by: Zak Quezada MD 09/09/2022 12:30 AM CDT Due to temporary technical issues with the PACS/Fluency reporting system, reports are being signed by the in house radiologist without review as a courtesy to ensure prompt reporting. The interpreting r adiologist is fully responsible for the content of the report.
--- NOTE | 2022-09-13 13:19 | EKG ---
Test Date: 2022-09-08 Test Time: 23:06:46 Content Strategy Lead: RV MEASUREMENT RESULTS: Intervals: Rate: 88 UT: 132 QRSD: 88 QT: 362 QTc: 438 [place]: P: 52 UT: 132 QRS: 66 T: 17 INTERPRETIVE STATEMENTS: Sinus rhythm with marked sinus arrhythmia Nonspecific ST and T wave abnormality Abnormal ECG Compared to ECG 09/08/2022 23:06:15 Atrial premature complex(es) no longer present ST (T wave) deviation still present Electronically Signed On 09-13-22 13:11:58 CDT by Shawn Braun
== END 2022-09-09 00:51 | disposition home or self-care (01) ==
LOC: ER 22:25
DX: R06.00 Dyspnea, unspecified (principal); R53.1 Weakness; E11.9 Type 2 diabetes mellitus without complications; I10 Essential (primary) hypertension; E78.5 Hyperlipidemia, unspecified; Z79.82 Long term (current) use of aspirin
CPT/HCPCS: 96361; 93005; 85025; 36415; 82550; 84484; 80053; 71045; 96374; 99284; J7030